=== PATIENT | female | born 1985 | race Caucasian/White ===

== ENCOUNTER → 2016-11-02 | Outpatient (CLI) | payer OTHER ==
[~2016-11-02] MED LIST: AMOXICILLIN250 MG PO; ATRAC-TAIN142 GM EXT; B-121000 MC1 PO; B12 HEALTH1000 MCG/1 PO; BACTRIM DS TAB1 EACH PO; BACTROBAN22 GM TP; CABERGOLINE0.5 MG PO; CENTANY30 G1 TOP; COMBIVENT14.7 GM INH; COREG3.125 MG PO; CYANOCOBAL1000 MCG/M INJ; DDAVP0.1 MG PO; DEMEROL PO; DEPO-PROVE150 MG/11 SUBQ; DESMOPRESSIN A0.1 MG PO; DESMOPRESSIN A0.2 M1 PO; FENOFIBRATE160 MG PO; FERROUS GLUCON324 M1 PO; FLORINEF0.1 MG PO; FLOXIN OTIC5 M1 AU; GLIPIZIDE10 MG PO; GLIPIZIDE10 MG/BOTT PO; GLUCOTROL PO; GUAIFENESIN400 M1 PO; HUMALOG KW200 UNIT/1 SUBQ; K-DUR20 ME1 PO; KOMBIGLYZE XR1 EAC2 PO; LEVAQUIN PO; LEVOTHYROXINE50 MC1 PO; LIPITOR80 MG PO; LISINOPRIL5 MG PO; LOPID600 MG PO; NITROFURANTOIN50 M1 PO; SYMBICORT INH; SYNTHROID112 MCG PO; TIROSINT50 MCG PO; TRESIBA FL100 UNIT/1 SUBQ; TRIAMCINOLONE A15 G2 EXT; TRIAMCINOLONE AC1 GM EXT; TRIGLIDE160 M1 PO; TYLENOL325 M1 PO; UREA142 G1 TP; VITAMIN D32000 UNI1 PO; XARELTO; ZINC SULFATE PO; ZINC50 M1 PO; ZYVOX600 MG DOB
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
== END | disposition home or self-care (01) ==
LOC: CMRI 15:23
DX: R51 Headache (principal); E34.8 Other specified endocrine disorders; G93.89 Other specified disorders of brain
CPT/HCPCS: 70551

== ENCOUNTER → 2016-11-30 | Outpatient (CLI) | payer OTHER ==
--- NOTE | ~2016-11-30 | CT4 ---
[facility] A Service of [facility] RADIOLOGY TEXT RESULTS PATIENT: BREANNE TAPIA LOCATION: [facility] : 85 UNIT #: [id number] AGE: [address]: J Luis Del Rio MD SEX: F ORDER DR: [id number] [place] [id number] [facility] [place], [place] [address] [id number] O MR#: [id number] #: [id number] NAME: BREANNE TAPIA : 1985 SEX: F STUDY DATE/TIME: 11/30/2016 15:09 UNIT: [facility] ROOM: STUDY DESCRIPTION: CT Abd and Pelv Wo Cont Attending Physician: J Luis Del Rio M.D. Referring Physician: J Luis Del Rio M.D. Ordering Physician: J Luis Del Rio M.D. Primary Care Physician: Mana Flores M.D. MEDICAL IMAGING REPORT This report is preliminary unless electronic signature is present EXAM CT of the abdomen and pelvis without contrast INDICATION Left sided abdominal pain for 3 years. Kidney stone history. TECHNIQUE CT of the abdomen and pelvis was performed without contrast. Renal stone protocol. Coronal and sagittal reformatted images were obtained. This CT exam was performed with one or more of the following radiation dose reduction techniques: automatic exposure control, adjustment of mA and/or kV according to patient size, and iterative reconstruction. COMPARISON STUDIES 08/07/2013 FINDINGS There is stable pleural calcifications on the right. There are also stable pleural calcifications along the left hemidiaphragm. The liver is unremarkable. The gallbladder is contracted. The spleen is unremarkable. The left kidney is atrophic and there is a large stone within the left renal pelvis measuring about 1.8 cm. There is a cyst in the right kidney. The adrenal glands are unremarkable. The pancreas is unremarkable. PELVIS: The colon is unremarkable. The appendix is normal. There is no free fluid. The bone windows are unremarkable. IMPRESSION 1. Atrophy of the left kidney with a 1.8 cm stone within the left renal pelvis. 2. Additional findings as described. [facility] A Service of [facility] RADIOLOGY TEXT RESULTS PATIENT: BREANNE TAPIA LOCATION: [facility] : 85 UNIT #: [id number] AGE: [address]: J Luis De lRio MD SEX: F ORDER DR: Dictated by... Kobe Mabry M.D. THIS IS AN ELECTRONICALLY VERIFIED REPORT Kobe Mabry M.D. at 12/01/2016 7:22 PM Honey TD: 12/01/2016 18:10 JOB #: [id number] MEDICAL IMAGING REPORT Page 1 of 1 COPY
== END | disposition home or self-care (01) ==
LOC: CCAT 14:17
DX: N18.3 Chronic kidney disease, stage 3 (moderate) (principal); N20.0 Calculus of kidney; N26.1 Atrophy of kidney (terminal)
CPT/HCPCS: 74176

== ENCOUNTER → 2016-12-30 | Outpatient (CLI) | payer OTHER ==
--- NOTE | ~2016-12-30 | EKG ---
PATIENT: BREANNE TAPIA UNIT #: [id number] Ventricular Rate: 89 BPM Atrial Rate: 89 BPM P-R Interval: 124 ms QRS Duration: 78 ms Q-T Interval: 364 ms QTC Calculation(Bezet): 442 ms P [place]: 50 degrees Calculated R [place]: 36 degrees Calculated T [place]: 38 degrees Diagnosis Line: Sinus rhythm with marked sinus arrhythmia Diagnosis Line: Otherwise normal ECG Diagnosis Line: When compared with ECG of 13-MAR-2015 14:57, Diagnosis Line: No significant change was found Diagnosis Line: Confirmed by OLE WORRELL MD ([id number]) on Diagnosis Line: 12/30/2016 2:48:19 PM INTERPRETING MD: GM ARMENDARIZ
[2016-12-30 14:32] LABS: HEMATOCRIT 45.2 % (35.0-45.0); HEMOGLOBIN 14.3 gm/dL (12.0-16.0); MEAN CELL VOLUME 76.5 FL (83-96); MEAN CORPUSCULAR HEMOGLOBIN 24.2 PG (28-34); MEAN CORPUSCULAR HGB CONC 31.6 g/dL (30-36); MEAN PLATELET VOLUME 7.7 FL (6.5-11.5); RED BLOOD COUNT 5.9 X10e (3.90-5.30); RED CELL DISTRIBUTION WIDTH 16.6 % (11.0-15.5); WHITE BLOOD COUNT 9.2 X10e3 (4.0-10.5)
[2016-12-30 15:00] LABS: CALCIUM SERUM 9.1 mg/dL (8.4-10.2); POTASSIUM 3.9 mmol/L (3.5-5.1)
== END | disposition home or self-care (01) ==
LOC: CAMB 12:35
PROVIDERS: Urology
DX: Z01.818 Encounter for other preprocedural examination (principal); N11.9 Chronic tubulo-interstitial nephritis, unspecified; N26.1 Atrophy of kidney (terminal); I49.9 Cardiac arrhythmia, unspecified
CPT/HCPCS: 36415; 80048; 85027; 86850; 86900; 86901; 93005

== ENCOUNTER 2017-01-06 06:26 | Inpatient (IN) | payer OTHER ==
[~2017-01-06] VITALS: Ht 139.7 cm; Wt 75.5 kg
--- NOTE | ~2017-01-06 | CO ---
Unit #: [id number] #: [id number] Patient: BREANNE TAPIA [id number] [address] [address] [id number] I MR#: [id number] NAME: BREANNE TAPIA ROOM: 478 Age: 31 Sex: F Admission Date: 01/06/2017 : 1985 Attending Physician: J Luis Del Rio M.D. Primary Care Physician: Mana Flores M.D. CONSULTATION REPORT REASON FOR CONSULTATION Tachycardia. 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 Information mostly has been obtained from the mother, who is at bedside. According to the mother, the patient was admitted for a scheduled left nephrectomy. She had an atrophic left kidney as a result to surgery that she had when she was 11 years old. She had recurrent infections. She is known to have familial hypercholesterolemia, diabetes, and diabetes insipidus which she is followed by Dr. Lucas. During the course of her stay, she developed tachycardia with heart rate was up to 140 beats per minute for which Cardiology was consulted. The patient has been unaware of palpitations. She denies any symptoms of angina. Has no shortness of breath. She has been afebrile throughout her stay. Had leukocytosis, but has been corrected. She had hyponatremia and fluid overloaded. She has been restarted on DDAVP. She has had no prior cardiac history or testing in the past. PAST MEDICAL HISTORY 1. Familial hypercholesterolemia. 2. Hypothyroidism. 3. Diabetes mellitus, type 2. 4. Diabetes insipidus. 5. Pulmonary fibrosis. 6. Obstructive sleep apnea. 7. 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 8. Lifelong nonsmoker. 9. Stress test several years ago, no details available, told normal. PAST SURGICAL HISTORY 1. Recent left nephrectomy. 2. Abdominal surgery for ganglionic neuroma. SOCIAL HISTORY The patient lives with her mother. There is no history of alcohol, tobacco, or illicit drug use. FAMILY HISTORY Negative for coronary artery disease. ALLERGIES Unit #: [id number] #: [id number] Patient: BREANNE TAPIA Citric acid, latex, desmopressin. HOME MEDICATIONS Fenofibrate 160 mg daily, desomorphine 0.2 mg t.i.d., Kombiglyze XR 2.10/999 mg b.i.d., Humalog 1 unit subcu t.i.d. a.c. and meals, vitamin D3 2000 units daily p.r.n., zinc sulfate one cap daily, Depo-Provera subcu, Bactrim DS one tablet q.h.s., Tirosint one tablet q.h.s. REVIEW OF SYSTEMS CONSTITUTIONAL: Negative for fever or chills. Has no weakness or fatigue. Had recent weight gain. HEENT: No headache, hearing or vision changes, or difficulty with swallowing. Denies dizziness. CARDIOVASCULAR: Has no symptoms of angina. Denies palpitations. No paroxysmal nocturnal dyspnea or orthopnea. Denies syncope or near syncope. RESPIRATORY: Negative for dyspnea. Reports occasional nonproductive cough. No hemoptysis. GASTROINTESTINAL: Positive for abdominal discomfort. No nausea or diarrhea. EXTREMITIES: Positive for lower extremity edema. PHYSICAL EXAMINATION VITAL SIGNS: Blood pressure 104/54, heart rate 129, temperature 98.1. BMI of 38. GENERAL: This is a 31-year-old short, obese, white female, who is in no acute distress. NEUROLOGIC: She is awake, alert, and oriented. There are no focal weaknesses. NECK: Trachea is midline. No thyromegaly or lymphadenopathy. No jugular venous distention. HEART: S1 and S2. Heart sounds are normal. No murmurs. No rubs or clicks. Regular rate and rhythm. There is tachycardic. ABDOMEN: Soft with tenderness that is diffuse. Bowel sounds are present. No hepatomegaly. EXTREMITIES: With 1+ leg edema. SKIN: Warm and dry. DIAGNOSTIC STUDIES LABORATORY RESULTS: Glucose 158, BUN 12, creatinine 0.7, sodium 136, potassium 4.4, magnesium 2.0. Hemoglobin A1c 7.1. TSH 1.75. Free T4 of 1.22. White count is 6.6, hemoglobin 10.6, hematocrit 33.0, and platelet count is 337. CARDIOVASCULAR STUDIES: EKG sinus tachycardia, rate of 129 beats per minute, otherwise normal. IMPRESSION 1. Status post left nephrectomy. 2. Hyponatremia, resolved. 3. Sinus tachycardia secondary to fluid retention. 4. Obesity. 5. History of obstructive sleep apnea. 6. Diabetes insipidus. PLAN 1. Cardiology was consulted for sinus tachycardia. The tachycardia is most likely secondary to fluid retention. 2. Hyponatremia has been corrected. Unit #: [id number] #: [id number] Patient: BREANNE TAPIA 3. We will check chest x-ray and D-dimer. Doubt pulmonary embolism. 4. Hold off on beta-macy for now. 5. We will follow the patient with you. Thank you for allowing us to assist with this patient's care. Dictated by... Carlos JohnsonPJoycelynRJoycelynN. for Gay Menjivar/sarah TD: 01/12/2017 08:36 JOB #: [id number] CC: Mana Flores M.D. CONSULTATION REPORT Page 1 of 1 X Julio Dong APRN X CONSULTATION REPORT
--- NOTE | ~2017-01-06 | DS ---
Unit #: [id number] #: [id number] Patient: BREANNE TAPIA [id number] [address] [address] [id number] I MR#: [id number] NAME: BREANNE TAPIA ROOM: 478 Age: 31 Sex: F Admission Date: 01/06/2017 : 1985 Discharge Date: 01/12/2017 Attending Physician: J Luis Del Rio M.D. Primary Care Physician: Mana Flores M.D. DISCHARGE SUMMARY PRIMARY DIAGNOSIS Left renal atrophy with chronic urinary tract infection associated with left renal stone. OTHER DIAGNOSES 1. Diabetes mellitus. 2. Diabetes insipidus. 3. Postoperative tachycardia. 4. Postoperative atelectasis. PROCEDURE Left re-operative open nephrectomy, January 06, 2017. CONSULTATIONS 1. Internal medicine, Dr. Vargas, diabetes and medical management. 2. Cardiology, Dr. Coombs. 3. Endocrinology, Dr. Lucas. 4. Pulmonary, Dr. Haynes. DISPOSITION Home. FOLLOWUP 1. Followup in my office next Monday for removal of remaining marylin. 2. Followup with pulmonary six to eight weeks with PFTs prior to appointment. 3. Endocrinology followup pending. HISTORY This patient with multiple medical problems and who already sees Dr. Lucas for hypothyroidism and the above endocrine problems was referred for persistent urinary tract infections associated with her atrophic left kidney and left renal stone. 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 A laparoscopic attempt at removal of the kidney had been unsuccessful due to intense scarring and that urologist had declined to re-attempt an open nephrectomy which was again requested at this time. HOSPITAL COURSE The patient was admitted the day of surgery and the nephrectomy difficult as expected was uneventfully performed. Postoperatively, patient was stable but declined Lovenox injections and therefore pneumatic boots were ordered. She eventually agreed with the Lovenox injections. The boots had initially been thought a second choice due to her chronic lower Unit #: [id number] #: [id number] Patient: BREANNE TAPIA extremity edema and wounds which are dressed. She was immediately seen by medicine for optimal management of her diabetes and recognizing Dr. Lucas's involvement. He followed subsequently. Due to early postoperative fever, likely due to insufficient ambulation and cooperation with spirometry, cultures were taken from urine and Isidro-Oquendo drainage. The urine was not done, but the BABAK drainage was negative. There was brief tachycardia for which she was seen by cardiology and evaluation normal other than mild elevation of D-dimer. This plus mildly abnormal chest x-ray prompted pulmonary evaluation where upon V/Q scan was ruled out with negative lower extremity Dopplers and negative V/Q scan. Note, the patient's diet was very rapidly advanced and not a problem during the admission. On the morning of discharge, she is very eager to go home. Every other staple is removed and she is discharged with followups as above. DISCHARGE MEDICATIONS Medications at time of discharge include: 1. Triamcinolone 1 g external every evening. 2. Mupirocin ointment. 3. Depo Provera subcutaneous every three months. 4. Kombiglyze XR 2.5-1000 mg one twice daily. 5. Fenofibrate 160 mg each evening. 6. Insulin degludec 30 units subcutaneous at bedtime. 7. Lispro insulin 1 unit subcutaneous a.c. 8. Desmopressin 0.2 mg twice daily. 9. Zinc one capsule every morning. 10. Bactrim double strength one at bedtime to be continued until followup. 11. Levothyroxine one tab every evening 0.5. 12. Vitamin D3 at 2000 units every morning. Dictated by... J Luis Del Rio M.D. [facility]/mikey TD: 01/13/2017 09:57 JOB #: [id number] CC: Gay Gilman M.D. Tamea D. Evans, M.D. DISCHARGE SUMMARY Page 1 of 1 X J Luis Del Rio MD DISCHARGE SUMMARY
--- NOTE | ~2017-01-06 | EKG ---
PATIENT: BREANNE TAPIA UNIT #: [id number] Ventricular Rate: 129 BPM Atrial Rate: 129 BPM P-R Interval: 118 ms QRS Duration: 82 ms Q-T Interval: 300 ms QTC Calculation(Bezet): 439 ms P [place]: 53 degrees Calculated R [place]: 55 degrees Calculated T [place]: 38 degrees Diagnosis Line: Sinus tachycardia Diagnosis Line: Normal ECG Diagnosis Line: When compared with ECG of 07-JAN-2017 13:38, Diagnosis Line: No significant change was found Diagnosis Line: Confirmed by JACKELYN RAIN MD ([id number]) on 01/11/2017 Diagnosis Line: 12:06:36 AM INTERPRETING MD: KOFFI ARMENDARIZ
--- NOTE | ~2017-01-06 | EKG ---
PATIENT: BREANNE TAPIA UNIT #: [id number] Ventricular Rate: 112 BPM Atrial Rate: 112 BPM P-R Interval: 128 ms QRS Duration: 74 ms Q-T Interval: 318 ms QTC Calculation(Bezet): 434 ms P [place]: 48 degrees Calculated R [place]: 19 degrees Calculated T [place]: 39 degrees Diagnosis Line: Sinus tachycardia Diagnosis Line: Otherwise normal ECG Diagnosis Line: When compared with ECG of 30-DEC-2016 12:50, Diagnosis Line: No significant change was found Diagnosis Line: Confirmed by JACKELYN RAIN MD ([id number]) on 01/10/2017 Diagnosis Line: 7:00:27 AM INTERPRETING MD: KOFFI ARMENDARIZ
--- NOTE | ~2017-01-06 | US84 ---
[id number] [facility] [address] [place], [place] [address] [id number] I MR#: [id number] #: [id number] NAME: BREANNE TAPIA : 1985 SEX: F STUDY DATE/TIME: 01/11/2017 16:15 UNIT: [facility] ROOM: 478 STUDY DESCRIPTION: US LE Veins Complete Jose Luis Stdy Attending Physician: J Luis eDl Rio M.D. Ordering Physician: Ed Doc Gay Resendiz Primary Care Physician: Mana Flores M.D. MEDICAL IMAGING REPORT This report is preliminary unless electronic signature is present EXAM Bilateral leg vein Doppler, 01/11 INDICATIONS Bilateral leg edema for 1 week. TECHNIQUE Venous ultrasound examination of both lower extremities was performed using grayscale, spectral Doppler and color flow Doppler imaging. FINDINGS The examination is negative. There is no evidence of deep venous thrombus from the groin to the lower calf bilaterally. Visualized greater saphenous veins are also patent. IMPRESSION Negative examination. No evidence of lower extremity deep venous thrombosis. Dictated by... J Luis Bustillos Jr., M.D. THIS IS AN ELECTRONICALLY VERIFIED REPORT J Luis Bustillos Jr., M.D. at 01/13/2017 2:28 PM TANIA/jeremi TD: 01/12/2017 03:43 JOB #: [id number] MEDICAL IMAGING REPORT Page 1 of 1 COPY
--- NOTE | ~2017-01-06 | OR ---
Unit #: [id number] #: [id number] Patient: BREANNE TAPIA [id number] [address] [address] [id number] I MR#: [id number] NAME: BREANNE TAPIA ROOM: 452 Date of Procedure: 01/06/2017 Admission Date: 01/06/2017 Surgeon: J Luis Del Rio M.D. : 1985 Attending Physician: J Luis Del Rio M.D. Primary Care Physician: Mana Flores M.D. OPERATIVE REPORT PREOPERATIVE DIAGNOSES Atrophic left kidney with chronic infected stone; multiple prior retroperitoneal surgeries including failed laparoscopic nephrectomy attempt in the past. POSTOPERATIVE DIAGNOSES Atrophic left kidney with chronic infected stone; multiple prior retroperitoneal surgeries including failed laparoscopic nephrectomy attempt in the past. PROCEDURE PERFORMED Left open nephrectomy. DIRECTOR VACCINE Magaly Price, licensed medical surgical coder. ANESTHESIA General with local supplementation. 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 Her left kidney is atrophic and harbors a large lower pole stone. Laparoscopic attempt to remove this by another surgeon in 2013 was unsuccessful. She is referred back by Nephrology for her continued infections, historically chronic strep, although most recent culture to me mixed vishnu. She has remained, after initial amoxicillin, on Bactrim according to culture results. DESCRIPTION OF PROCEDURE The patient was given preoperative Rocephin and satisfactory general anesthesia. In the supine position, pneumatic boots were not placed as both of her legs were wrapped for chronic wounds. The Ordaz catheter was placed. She was positioned in full left flank with the kidney rest elevated and secured to the table with tape at the hips and chest with all extremities had properly padded and the left arm suspended with padding. I palpated the 12th rib and marked an ink and incision confluent with her anterior incision. Routine prep and drape were performed. Then, incision was made over the 12th rib as indicated above. Immediately noted in the retroperitoneum was dense scarring. Continued reference to the CT scan facilitated avoiding the colon and the small bowel which were in immediate proximity with the densely scarred left kidney. One full hour was Unit #: [id number] #: [id number] Patient: BREANNE TAPIA required to identify the kidney and freed up initially. Fortunately although the hilum was densely scarred and with dense adhesions of the anterior kidney and lower pole. The posterior kidney at the level of capsule was able to be bluntly dissected as well as the upper pole, which came down bluntly without bleeding and was known to be well from the adrenal gland. A second hour was required to meticulously dissect out in a circumferential fashion of the hilum. In this process, the ureter was identified and divided between silk ties. The gonadal vein was never positively identified. The renal vein or a branch was identified and test clamped without any enlargement of the kidney. Further dissection of the dense hilum and mobilization of the kidney reached a point where it was most practical to place a Satinsky clamp. I did first tie off the small vein that had been identified with silk. I then applied this Satinsky and the kidney with an 11-blade. Note that, in the dissection, the lower pole of the kidney which was severely atrophic was entered and 2 or 3 tiny stones were spilled and submitted with the specimen. There was no pus whatsoever from the kidney. The bulk of stone remained in the kidney which was delivered off and placed in formalin before I could suggest to be sent for culture. The hilar clamp was twice under sewn with a running 3-0 Prolene. When this was tied, there was complete hemostasis. Inspection did not clearly reveal the renal artery to me. There were no areas of bleeding subsequent to this. A meticulous search to assure hemostasis was performed and the wound was irrigated with solution extensively. It was closed with a 15 round Isidro-Oquendo drain, secured with silk. The wound was then closed in 3 layers of running #1 Vicryl. A dense Jacquie layer was approximated after again irrigating the wound, and the skin was closed with metallic clips. 30 mL of 0.5% Marcaine were injected in the wound and a sterile dressing applied. The patient was awakened and transported to recovery room in satisfactory condition. Dictated by... Gay Hay/sarah TD: 01/06/2017 13:01 JOB #: [id number] CC: Consuelo Mahajan M.D. OPERATIVE REPORT Page 1 of 1 X J Luis Del Rio MD PROCEDURE OPERATIVE NOTE
--- NOTE | ~2017-01-06 | NM69 ---
[facility] A Service of [facility] & [facility] RADIOLOGY TEXT RESULTS PATIENT: BREANNE TAPIA LOCATION: [place] [address] : 85 UNIT #: [id number] AGE: [address]: J Luis Del Rio MD SEX: F ORDER DR: [id number] [facility] [address] [place], [place] [address] [id number] I MR#: [id number] Acc #: [id number] NAME: BREANNE TAPIA : 1985 SEX: F STUDY DATE/TIME: 01/11/2017 18:22 UNIT: [facility] ROOM: [facility] STUDY DESCRIPTION: NM Pulm Vent and Perf Attending Physician: J Luis Del Rio M.D. Ordering Physician: J Luis Del Rio M.D. Primary Care Physician: Mana Flores M.D. MEDICAL IMAGING REPORT This report is preliminary unless electronic signature is present EXAM Ventilation-perfusion lung scan, 01/11/2017. HISTORY Elevated D-dimer with swollen legs and feet for 1 week. Evaluate for pulmonary embolus. FINDINGS The patient received 35.3 mCi of technetium 99m tagged DTPA aerosol for ventilation imaging followed by an intravenous injection of 5.94 mCi of technetium 99m tagged MAA for perfusion imaging. No unmatched subsegmental or segmental perfusion defects are seen. IMPRESSION Normal ventilation-perfusion lung scan. Dictated by... Paul Schaefer M.D. THIS IS AN ELECTRONICALLY VERIFIED REPORT Paul Schaefer M.D. at 01/12/2017 10:22 AM MIKE/nguyễn TD: 01/12/2017 08:44 JOB #: [id number] MEDICAL IMAGING REPORT Page 1 of 1 COPY
--- NOTE | ~2017-01-06 | CR63 ---
[facility] Service of [facility] RADIOLOGY TEXT RESULTS PATIENT: BREANNE TAPIA LOCATION: [place] [address] : 85 UNIT #: [id number] AGE: [address]: J Luis Del Rio MD SEX: F ORDER DR: [id number] [facility] [address] [place], [place] [address] [id number] I MR#: [id number] Acc #: [id number] NAME: BREANNE TAPIA : 1985 SEX: F STUDY DATE/TIME: 01/10/2017 12:32 UNIT: [facility] ROOM: [facility] STUDY DESCRIPTION: CR Chest 2 View Attending Physician: J Luis Del Rio M.D. Ordering Physician: Fredis Resendiz M.D. Primary Care Physician: Mana Flores M.D. MEDICAL IMAGING REPORT This report is preliminary unless electronic signature is present EXAM Chest, 2 views, 01/10/2017, 1232 hours. CLINICAL HISTORY Tachycardia with cough, congestion, and shortness of air for 4 days. COMPARISON 06/20/2010 FINDINGS Upright PA and lateral views of the chest demonstrate a right PICC line with tip at junction of SVC and right atrium. The cardiac, mediastinal, and hilar contours are normal. There is parenchymal density in the medial right lung base somewhat obscuring the right heart border with minimal patchy density at the left base. There are small bilateral pleural effusions. IMPRESSION 1. Right PICC line tip in the SVC at the junction with right atrium. 2. There is patchy airspace change in the medial lung bases, right greater than left, with bilateral pleural effusions left greater than right. Dictated by... Nita Turpin M.D. THIS IS AN ELECTRONICALLY VERIFIED REPORT Nita Turpin M.D. at 01/10/2017 6:57 PM Marlin TD: 01/10/2017 17:32 [facility] Service of [facility] RADIOLOGY TEXT RESULTS PATIENT: BREANNE TAPIA LOCATION: [facility] [id number] : 85 UNIT #: [id number] AGE: [address]: J Luis Del Rio MD SEX: F ORDER DR: JOB #: [id number] MEDICAL IMAGING REPORT Page 1 of 1 COPY
--- NOTE | ~2017-01-06 | CO ---
Unit #: [id number] #: [id number] Patient: BREANNE OLIVARES [id number] [address] [place], [place] [address] [id number] I MR#: [id number] NAME: BREANNE OLIVARES ROOM: 478 Age: 31 Sex: F Admission Date: 01/06/2017 : 1985 Attending Physician: J Luis Del Rio M.D. Primary Care Physician: Mana Flores M.D. Consultation Date: 01/11/2017 CONSULTATION REPORT REASON FOR CONSULTATION Abnormal chest x-ray. HISTORY OF PRESENT ILLNESS The patient is a 31-year-old female, who actually I had seen in the past for sleep apnea. She was tried on CPAP, but could not tolerate it. She currently is untreated. She had issues with chronic infected kidney stone and underwent left nephrectomy. She has a very complicated past history including diabetes insipidus. She had lower extremity edema. Chest x-ray was performed, radiologist called bibasilar infiltrates and we were asked to see the patient. The patient denies any shortness of breath. She walks up and down the halls without difficulty. No wheezing, sputum production, fever, chest pain, hemoptysis, or pleurisy. PAST MEDICAL HISTORY 1. Remarkable for remote obstructive sleep apnea, intolerant to CPAP; remote critical illness in 1995, which sounds like pneumonia, complicated by ARDS and pneumothorax. describes pleurodesis on the right side, possibly on the left side. She states she was left with "fibrosis.". 2. Diabetes insipidus. 3. Diabetes mellitus. 4. Multiple medical problems including hyperlipidemia, hypothyroidism, pituitary tumor, history of remote encephalitis, history ganglionic neuroma, history of chronic leg wounds followed by dermatology. MEDICATIONS At home according to her med rec sheet includes Synthroid, Bactrim DS, fenofibrate, desmopressin, Kombiglyze, Tresiba, a variety of vitamins and topical creams. ALLERGIES DDAVP nasally, but apparently can take it orally. SOCIAL HISTORY Lives with her parents. She does not smoke or drink. FAMILY HISTORY Diabetes. REVIEW OF SYSTEMS She denies daytime sleepiness. She does have an unusual sleep schedule and basically stays up very late. No fever or chills. She denies any lower extremity edema at baseline, but I find that somewhat hard to Unit #: [id number] #: [id number] Patient: BREANNE OLIVARES believe by exam. She denies chest pain, palpitations, abdominal pain, melena, or hematochezia. She is postop and recovering, walking without difficulty. She apparently walks with assistance at home at baseline. Further review of systems negative or as above. PHYSICAL EXAMINATION GENERAL: Reveals a patient, who is comfortable, sitting in a chair on room air, in no acute distress. VITAL SIGNS: She has a T-max of 100. She is now 99.3, pulse is 118, respiratory rate is 18, blood pressure is 116/46, 4 feet 7 inches, 166 pounds, BMI is 38. HEENT: Pupils are equal, round, and reactive to light. Sclerae anicteric. Head atraumatic. NECK: Supple. She is nontoxic. Mucous membranes moist. Mallampati class IV oropharynx. CHEST: No wheeze, stridor, crackles, or consolidation. CARDIAC: Reveals a tachycardia which is regular. No murmur, rub or gallop. ABDOMEN: Obese, soft, and nontender. No hepatomegaly or rebound. EXTREMITIES: Reveal 2+ edema. Some chronic leg wounds. No acute cellulitis. NEUROLOGIC: Grossly intact. No focal, motor or sensory deficits. DIAGNOSTIC STUDIES LABORATORY RESULTS: BUN is 17, creatinine 0.9, sodium is 157 and Endocrine is following. D-dimer was checked and was 564. White blood cell count is 6, hemoglobin is 10, platelet count is 384. Urinalysis; trace leukocyte esterase. Blood cultures were performed and no growth so far. IMAGING STUDIES: Chest x-ray, I did not see any significant alveolar or interstitial infiltrates. The radiologist is reading patchy airspace change at medial lung bases, right greater than left. Bilateral pleural effusions. On lateral film, I do agree that there may be some small pleural effusions. CT scan of the abdomen, lower lung cuts in 11/2016 revealed some pleural plaques. No definite fibrosis was commented upon. Echocardiogram per verbal report from Dr. Coombs, normal RV, normal LV, rhythm strips, sinus tachycardia. IMPRESSION 1. Abnormal chest x-ray, looks okay to me. I think this may be some mild atelectasis. She may have had some mild volume overload postoperatively causing transudative pleural effusions and lower extremity edema. I see no evidence of britany pulmonary edema currently. 2. History of severe pneumonia what sounds like pneumothorax, barrel trauma resulting in pneumothorax, status post chest tube and ultimately pleurodesis. 3. Obstructive sleep apnea, intolerant to CPAP, details unclear. 4. Postoperative nephrectomy. 5. Diabetes insipidus with increased sodium. 6. Elevated D-dimer secondary to recent surgery. 7. Lower extremity edema. 8. Medical problems listed above. PLAN I will check lower extremity venous Dopplers to rule out DVT, but my suspicion for pulmonary embolism is very low. She may benefit from Unit #: [id number] #: [id number] Patient: BREANNE OLIVARES outpatient PFTs to document this diagnosis of pulmonary fibrosis, which I doubt. We will try to evaluate our office notes to see if she needs any further evaluation for sleep apnea. Thank you very much for allowing me to participate in the care of Ms. Olivares. Dictated by... Dayo Haynes M.D. VIGNESH/sarah TD: 01/12/2017 07:50 JOB #: [id number] CC: Gay Menjivar M.D. CONSULTATION REPORT Page 1 of 1 X Dayo Haynes MD CONSULTATION REPORT
--- NOTE | ~2017-01-06 | CO ---
Unit #: [id number] #: [id number] Patient: BREANNE TAPIA [id number] [address] [place], [place] [address] [id number] I MR#: [id number] NAME: BREANNE TAPIA ROOM: 478 Age: 31 Sex: F Admission Date: 01/06/2017 : 1985 Attending Physician: J Luis Del Rio M.D. Primary Care Physician: Mana Flores M.D. Consultation Date: 01/10/2017 CONSULTATION REPORT REASON FOR CONSULT Management of the sodium and diabetes insipidus. This is a 31-year-old female who was very well known to me from my office with a history of type 2 diabetes mellitus, central diabetes insipidus, hypothyroidism, obesity, history of infected renal stones with left nephrectomy, who was admitted with increasing swelling generalized all over her body but she has no difficulty in breathing. On admission, she had a sodium of 156. She was started on DDAVP where her sodium dropped to 128 which was discontinued. Desmopressin was discontinued. Today her sodium is 146. I have been asked to see the patient for further evaluation and management. MEDICAL HISTORY See HPI. Other medical problems include obstructive sleep apnea. PAST SURGICAL HISTORY 1. Left nephrectomy. 2. History of EGD. SOCIAL HISTORY Lives with her parents. She has no history of tobacco or alcohol use. FAMILY HISTORY Noncontributory. ALLERGIES Sodium phosphate, citric acid, latex. HOME MEDICATIONS List was reviewed. She is on: 1. Tresiba 30 units at bedtime. 2. Kombiglyze 2.10/999 twice daily. 3. Humalog sliding scale. 4. Fenofibrate 160 mg daily. 5. Levothyroxine. 6. Desmopressin - she was receiving 0.2 mg, three tablets daily. 7. Depo-Provera every three months. REVIEW OF SYSTEMS Twelve point review of systems is completed and unremarkable. At this time, she declines any polyuria or polydipsia. No headaches, no visual problems. The rest of review of system is unremarkable. Unit #: [id number] #: [id number] Patient: BREANNE TAPIA PHYSICAL EXAMINATION GENERAL APPEARANCE: She looks comfortable, in no acute distress. VITAL SIGNS: Temperature 98.4, pulse 111, respirations 16, blood pressure is 104/55. HEENT: EOMI. Pupils equal, react to light. NECK: Supple. No thyromegaly noted. CHEST: Good air entry. CVS: Regular rhythm. No murmurs. ABDOMEN: Soft, nontender. Bowel sounds positive. EXTREMITIES: No edema noted. DIAGNOSTIC STUDIES LABORATORY: Labs reviewed. Creatinine is 0.7, sodium 146, potassium 4.4, chloride 109, CO2 is 28. A1c 7.1. ASSESSMENT 1. Hyponatremia due to the desmopressin as well as IV hydration: Sodium has improved. Now, at this point, she is hypernatremic at 146. 2. History of diabetes insipidus. 3. Diabetes mellitus type 2. 4. Hypothyroidism. PLAN Will start patient on desmopressin 0.1 mg twice daily. Will monitor sodium daily. Will hold the dose if the sodium level goes below 138. Blood sugars have been stable. Continue current medications and insulin. Will continue to follow the patient for further management. Dictated by... Gay Nava/rylan TD: 01/11/2017 11:21 JOB #: [id number] CONSULTATION REPORT Page 1 of 1 X Spring Lucas MD X CONSULTATION REPORT
--- NOTE | ~2017-01-06 | CR63 ---
[facility] A Service of [facility] & [facility] RADIOLOGY TEXT RESULTS PATIENT: BREANNE TAPIA LOCATION: [place] [address]- : [birth year] UNIT #: [id number] AGE: [address]: J Luis Del Rio MD SEX: F ORDER DR: [id number] [facility] [address] [place], [place] [address] [id number] I MR#: [id number] #: [id number] NAME: BREANNE TAPIA : 1985 SEX: F STUDY DATE/TIME: 01/11/2017 7:17 UNIT: [facility] ROOM: [facility] STUDY DESCRIPTION: CR Chest 2 View Attending Physician: J Luis Del Rio M.D. Ordering Physician: Darrell Best M.D. Primary Care Physician: Mana Flores M.D. MEDICAL IMAGING REPORT This report is preliminary unless electronic signature is present EXAM Chest x-ray, 01/11 INDICATION Shortness of air, cough, congestion since 01/06/2017. History of hypertension. FINDINGS Two views of the chest are compared with 01/10/2017. Right arm PICC remains in the SVC. Small bilateral pleural effusions are stable. Mild infiltrate or atelectasis in both bases, also stable. No pneumothorax. IMPRESSION Stable appearance of the chest with small bilateral effusions and mild bibasilar atelectasis or infiltrate. Dictated by... J Luis Bustillos Jr., M.D. THIS IS AN ELECTRONICALLY VERIFIED REPORT J Luis Bustillos Jr., M.D. at 01/11/2017 4:45 PM TANIA/ann marie TD: 01/11/2017 13:11 JOB #: [id number] MEDICAL IMAGING REPORT Page 1 of 1 COPY
--- NOTE | ~2017-01-06 | CO ---
Unit #: [id number] #: [id number] Patient: BREANNE TAPIA [id number] [address] [address] [id number] I MR#: [id number] NAME: BREANNE TAPIA ROOM: 45 Age: 31 Sex: F Admission Date: 01/06/2017 : 1985 Attending Physician: J Luis Del Rio M.D. Primary Care Physician: Mana Flores M.D. Consultation Date: 01/06/2017 CONSULTATION REPORT REASON FOR CONSULTATION Diabetes and medical management. HISTORY OF PRESENT ILLNESS The patient is a 31-year-old female with past medical history of infected renal stone, hyperlipidemia, hypothyroidism, diabetes insipidus, diabetes mellitus, pulmonary fibrosis, obstructive sleep apnea, ganglionic neuroma, encephalitis, pituitary gland tumor, immunodeficiency and leg wounds who was admitted by Dr. Del Rio for left nephrectomy. History is obtained from chart review and discussion with the patient and her parents who are at bedside. The patient has apparently had an atrophic left kidney with infected renal stone and multiple prior surgeries. She underwent nephrectomy today. She denies any current chest pain or difficulty breathing. Her pain control is adequate. She states that she has been taking her medications as prescribed. She sees Dr. Lucas regarding diabetes insipidus, hypothyroidism. She is also seeing Dr. Mohamud regarding chronic leg wounds. l PAST MEDICAL HISTORY 1. Hospitalized at [facility] for kidney-related issue (no records). 2. Hyperlipidemia. 3. Hypothyroidism, followed by Dr. Lucas. 4. Diabetes insipidus, maintained on desmopressin. 5. Diabetes. 6. 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 7. Obstructive sleep apnea, not on CPAP. 8. History of ganglionic neuroma status post surgery. 9. History of encephalitis. 10. History of pituitary gland tumor, per record review. However, the patient's mother denies a tumor. 11. History of immunodeficiency. Previously followed by immunology but not currently. 12. Leg wounds, followed by Dr. Mohamud. PAST SURGICAL HISTORY 1. EGD. 2. Abdominal surgery for "ganglionic neuroma." SOCIAL HISTORY Unit #: [id number] #: [id number] Patient: BREANNE TAPIA The patient lives with her parents. There is no tobacco or alcohol use. She typically walks without assistance. FAMILY HISTORY Notable for diabetes. ALLERGIES Sodium phosphate dibasic, desmopressin, citric acid, latex. HOME MEDICATIONS 1. Levothyroxine daily. 2. Bactrim daily. 3. Fenofibrate 160 mg daily. 4. Desmopressin 0.2 mg t.i.d. 5. Saxagliptin/metformin 2.5/1,000 b.i.d. 6. Tresiba 30 units at bedtime. 7. Mupirocin topically at bedtime. 8. Triamcinolone cream daily. 9. Humalog sliding scale. 10. Vitamin D3 - 2,000 units daily. 11. Zinc daily. 12. Depo-Provera q.3 months. REVIEW OF SYSTEMS A complete review of systems is negative except as indicated in the HPI. PHYSICAL EXAMINATION VITAL SIGNS: Temperature is 98.7, pulse 83, blood pressure 119/63, respirations 16, oxygen saturation 94% on room air. GENERAL: The patient is a female who is awake and alert, in no acute distress. HEENT: The head is atraumatic. Mucous membranes are moist. She does seem to have "mcgraw facies." NECK: Supple. Trachea is midline. CARDIOVASCULAR: Regular rate and rhythm. RESPIRATORY: Lungs are clear to auscultation bilaterally with no increased work of breathing. ABDOMEN: Demonstrates decreased bowel sounds. There is a dressing in the left abdomen that is clean, dry and intact. She does have a drain in place. EXTREMITIES: The patient has ANISHA Bandages about the legs. There is no pedal edema. NEUROLOGIC: The patient is awake and alert, oriented x3. She follows commands. PSYCHIATRIC: Mood and affect are normal. The patient is cooperative. SKIN: Skin of examined areas is warm and dry. DIAGNOSTIC TESTS LABORATORY: Basic metabolic panel from today notable for glucose of 121. ASSESSMENT 1. The patient is a 31-year-old female with status post left nephrectomy. 2. History of infected renal stone. 3. Hyperlipidemia. 4. Hypothyroidism. 5. Diabetes insipidus, maintained on desmopressin. 6. Diabetes. 7. Pulmonary fibrosis. Unit #: [id number] #: [id number] Patient: BRENANE TAPIA 8. Obstructive sleep apnea, not on CPAP. 9. History of ganglionic neuroma status post surgery. 10. History of encephalitis. 11. Possible history of pituitary gland tumor. 12. History of immunodeficiency. 13. Leg wounds, followed by Dr. Mohamud. PLAN 1. Regarding diabetes, I have ordered a hemoglobin A1C, as well as low dose sliding scale insulin with Accu-Cheks. 2. Regarding hypothyroidism, I have ordered a TSH. 3. Regarding leg wounds, I have ordered a wound care consult. Thank you very much for the consultation. We will follow the patient along closely with you. Dictated by... Raya Vargas M.D. Pj TD: 01/06/2017 13:47 JOB #: [id number] CONSULTATION REPORT Page 1 of 1 X Raya Vargas MD X CONSULTATION REPORT
[~2017-01-06 06:26] MED LIST changes: -B-121000 MC1 PO; -CYANOCOBAL1000 MCG/M INJ; -DEMEROL PO; -FERROUS GLUCON324 M1 PO; -LISINOPRIL5 MG PO; -XARELTO
[2017-01-06 07:37] LABS: CALCIUM SERUM 8.8 mg/dL (8.4-10.2); CREATININE SERUM 0.5 mg/dL (0.6-1.4); POTASSIUM 3.7 mmol/L (3.5-5.1)
[2017-01-07 12:28] LABS: CALCIUM SERUM 7.9 mg/dL (8.4-10.2); CREATININE SERUM 0.6 mg/dL (0.6-1.4); GLOM FILT RATE Estimated 121.5 mL/min (>60); POTASSIUM 4.2 mmol/L (3.5-5.1)
[2017-01-07 13:50] LABS: URINE APPEARANCE CLEAR; URINE BILIRUBIN NEG (NEG); URINE BLOOD 1+ (NEG); URINE COLOR YELLOW; URINE GLUCOSE NEG (NEG); URINE KETONE 1+ (NEG); URINE LEUKOCYTE ESTERASE NEG (NEG); URINE NITRATE NEG (NEG); URINE PH 5.5 (5-8); URINE PROTEIN NEG (NEG); URINE SPECIFIC GRAVITY 1.022 (1.003-1.035); URINE UROBILINOGEN 0.2 MG/DL (NEG)
[2017-01-07 13:53] LABS: CULTURE INDICATED? NO; URINE BACTERIA AUWI NEG (NEGATIVE); URINE SQUAMOUS EPITHELIAL CELL NONE SEEN /[HPF]
[2017-01-07 16:00] LABS: BASOPHIL% 0.3 % (0-2.5); EOSINOPHIL# 0.1 X10e3 (0-0.7); EOSINOPHIL% 0.5 % (0.0-7.0); HEMATOCRIT 32.8 % (35.0-45.0); HEMOGLOBIN 10.5 gm/dL (12.0-16.0); LYMPHOCYTE# 1.6 X10e3 (1.0-3.5); LYMPHOCYTE% 12.3 % (17.0-45.0); MEAN CELL VOLUME 74.5 FL (83-96); MEAN CORPUSCULAR HEMOGLOBIN 23.9 PG (28-34); MEAN CORPUSCULAR HGB CONC 32.1 g/dL (30-36); MEAN PLATELET VOLUME 7.7 FL (6.5-11.5); MONOCYTE% 7.5 % (3.0-12.0); NEUTROPHIL# 10.5 X10e3 (1.5-7.1); NEUTROPHIL% 79.4 % (40-75); PLATELET COUNT 251 X10e3 (140-420); RED CELL DISTRIBUTION WIDTH 16.6 % (11.0-15.5); WHITE BLOOD COUNT 13.2 X10e3 (4.0-10.5)
[2017-01-07 16:01] LABS: DIFF IND NO
[2017-01-07 16:31] LABS: CALCIUM SERUM 7.9 mg/dL (8.4-10.2); CREATININE SERUM 0.5 mg/dL (0.6-1.4); POTASSIUM 3.9 mmol/L (3.5-5.1)
[2017-01-08 02:40] LABS: BASOPHIL# 0.1 X10e3 (0-0.3); BASOPHIL% 0.7 % (0-2.5); EOSINOPHIL# 0.2 X10e3 (0-0.7); EOSINOPHIL% 1.3 % (0.0-7.0); HEMATOCRIT 31.5 % (35.0-45.0); HEMOGLOBIN 10.1 gm/dL (12.0-16.0); LYMPHOCYTE# 1.5 X10e3 (1.0-3.5); LYMPHOCYTE% 10.7 % (17.0-45.0); MEAN CELL VOLUME 73.9 FL (83-96); MEAN CORPUSCULAR HEMOGLOBIN 23.7 PG (28-34); MEAN PLATELET VOLUME 7.3 FL (6.5-11.5); MONOCYTE# 1.1 X10e3 (0-1.0); NEUTROPHIL# 11.3 X10e3 (1.5-7.1); NEUTROPHIL% 79.3 % (40-75); PLATELET COUNT 241 X10e3 (140-420); RED BLOOD COUNT 4.26 X10e (3.90-5.30); RED CELL DISTRIBUTION WIDTH 16.6 % (11.0-15.5); WHITE BLOOD COUNT 14.2 X10e3 (4.0-10.5)
[2017-01-08 03:00] LABS: DIFF IND NO
[2017-01-08 03:04] LABS: CALCIUM SERUM 7.4 mg/dL (8.4-10.2); CREATININE SERUM 0.7 mg/dL (0.6-1.4); GLOM FILT RATE Estimated 115.5 mL/min (>60); POTASSIUM 3.4 mmol/L (3.5-5.1)
[2017-01-08 03:15] LABS: THYROID STIMULATING HORMONE 1.75 uIU/ml (0.34-5.60)
[2017-01-08 03:21] LABS: FREE THYROXIN (T4) 1.22 ng/dL (0.58-1.64)
[2017-01-09 03:27] LABS: BASOPHIL# 0.1 X10e3 (0-0.3); BASOPHIL% 0.8 % (0-2.5); EOSINOPHIL# 0.4 X10e3 (0-0.7); EOSINOPHIL% 3.4 % (0.0-7.0); HEMATOCRIT 29.1 % (35.0-45.0); HEMOGLOBIN 9.4 gm/dL (12.0-16.0); LYMPHOCYTE# 1.5 X10e3 (1.0-3.5); LYMPHOCYTE% 12.9 % (17.0-45.0); MEAN CELL VOLUME 73.4 FL (83-96); MEAN CORPUSCULAR HEMOGLOBIN 23.6 PG (28-34); MEAN CORPUSCULAR HGB CONC 32.2 g/dL (30-36); MEAN PLATELET VOLUME 7.6 FL (6.5-11.5); MONOCYTE# 0.8 X10e3 (0-1.0); NEUTROPHIL# 8.7 X10e3 (1.5-7.1); NEUTROPHIL% 75.9 % (40-75); PLATELET COUNT 275 X10e3 (140-420); RED BLOOD COUNT 3.97 X10e (3.90-5.30); WHITE BLOOD COUNT 11.5 X10e3 (4.0-10.5)
[2017-01-09 03:28] LABS: DIFF IND NO
[2017-01-09 03:57] LABS: BUN/CREATININE RATIO 11.66; CALCIUM SERUM 7.8 mg/dL (8.4-10.2); CREATININE SERUM 0.6 mg/dL (0.6-1.4); GLOM FILT RATE Estimated 121.5 mL/min (>60); POTASSIUM 3.3 mmol/L (3.5-5.1)
[2017-01-09 09:34] LABS: URINE APPEARANCE CLEAR; URINE BILIRUBIN NEG (NEG); URINE BLOOD NEG (NEG); URINE COLOR YELLOW; URINE GLUCOSE NEG (NEG); URINE KETONE NEG (NEG); URINE LEUKOCYTE ESTERASE TRACE (NEG); URINE NITRATE NEG (NEG); URINE PROTEIN NEG (NEG); URINE SPECIFIC GRAVITY 1.005 (1.003-1.035); URINE UROBILINOGEN 0.2 MG/DL (NEG)
[2017-01-09 09:38] LABS: URBCS1 AUWI 0-2 /[HPF] (0-2); URINE BACTERIA AUWI NEG (NEGATIVE); URINE SQUAMOUS EPITHELIAL CELL NONE SEEN /[HPF]; UWBCS1 AUWI 0-2 (0-5)
[2017-01-09 09:52] LABS: CULTURE INDICATED? NO
[2017-01-10 03:31] LABS: HEMOGLOBIN 10.6 gm/dL (12.0-16.0); MEAN CELL VOLUME 74.8 FL (83-96); MEAN CORPUSCULAR HEMOGLOBIN 24.2 PG (28-34); MEAN CORPUSCULAR HGB CONC 32.3 g/dL (30-36); MEAN PLATELET VOLUME 6.8 FL (6.5-11.5); RED BLOOD COUNT 4.41 X10e (3.90-5.30); RED CELL DISTRIBUTION WIDTH 16.4 % (11.0-15.5); WHITE BLOOD COUNT 6.6 X10e3 (4.0-10.5)
[2017-01-10 03:58] LABS: BUN/CREATININE RATIO 17.14; CALCIUM SERUM 8.9 mg/dL (8.4-10.2); CREATININE SERUM 0.7 mg/dL (0.6-1.4); GLOM FILT RATE Estimated 115.5 mL/min (>60); POTASSIUM 4.4 mmol/L (3.5-5.1)
[2017-01-10 04:13] LABS: FOLATE (FOLIC ACID) 20.7 ng/mL (>5.8)
[2017-01-11 03:36] LABS: HEMATOCRIT 32.7 % (35.0-45.0); HEMOGLOBIN 10.1 gm/dL (12.0-16.0); MEAN CELL VOLUME 75.7 FL (83-96); MEAN CORPUSCULAR HEMOGLOBIN 23.5 PG (28-34); MEAN PLATELET VOLUME 6.9 FL (6.5-11.5); RED BLOOD COUNT 4.32 X10e (3.90-5.30); RED CELL DISTRIBUTION WIDTH 16.6 % (11.0-15.5)
[2017-01-11 04:12] LABS: BUN/CREATININE RATIO 18.88; CALCIUM SERUM 9.1 mg/dL (8.4-10.2); CREATININE SERUM 0.9 mg/dL (0.6-1.4); GLOM FILT RATE Estimated 85.3 mL/min (>60); MAGNESIUM 2.1 mg/dL (1.6-3.0); POTASSIUM 3.8 mmol/L (3.5-5.1)
[2017-01-12 04:15] LABS: HEMATOCRIT 29.5 % (35.0-45.0); HEMOGLOBIN 9.4 gm/dL (12.0-16.0); MEAN CELL VOLUME 75.6 FL (83-96); MEAN CORPUSCULAR HEMOGLOBIN 24.1 PG (28-34); MEAN CORPUSCULAR HGB CONC 31.8 g/dL (30-36); MEAN PLATELET VOLUME 6.7 FL (6.5-11.5); RED BLOOD COUNT 3.9 X10e (3.90-5.30); RED CELL DISTRIBUTION WIDTH 16.7 % (11.0-15.5)
[2017-01-12 04:41] LABS: BUN/CREATININE RATIO 23.33; CALCIUM SERUM 8.8 mg/dL (8.4-10.2); CREATININE SERUM 0.9 mg/dL (0.6-1.4); GLOM FILT RATE Estimated 85.3 mL/min (>60); MAGNESIUM 1.9 mg/dL (1.6-3.0)
[2017-01-12] MEDS ORDERED: DEMEROL PO (13:34)
[2017-01-12] MEDS ORDERED: CYANOCOBAL1000 MCG/M INJ (13:35)
[2017-01-12] MEDS ORDERED: DDAVP0.1 MG PO ×2 (14:32→14:37)
[2017-01-12] MEDS ORDERED: B-121000 MC1 PO (14:50)
== END 2017-01-12 15:44 | disposition home or self-care (01) | DRG 660 ==
LOC: CSUR 06:26 → CPACUOF 09:18 → C4C 11:50 → C4B 13:28 → CPACUOF 13:28 → C4C 01-07 17:22 → C4B 01-07 17:22 → C4C 01-12 15:44
PROVIDERS: Family Medicine; Internal Medicine; Internal Medicine Endocrinology, Diabetes & Metabolism; Nurse Practitioner; Urology
PROC: 0DNW0ZZ Release Peritoneum, Open Approach (ICD-10-PCS; 2017-01-06)
PROC: 0TT10ZZ Resection of Left Kidney, Open Approach (ICD-10-PCS; principal; 2017-01-06 07:30)
PROC: 02HV33Z Insertion of Infusion Device into Superior Vena Cava, Percutaneous Approach (ICD-10-PCS; 2017-01-07)
PROC: 4A02X4A Measurement of Cardiac Electrical Activity, Guidance, External Approach (ICD-10-PCS; 2017-01-07)
PROC: B548ZZA Ultrasonography of Superior Vena Cava, Guidance (ICD-10-PCS; 2017-01-07)
DX: N26.1 Atrophy of kidney (terminal) (principal); J95.89 Other postprocedural complications and disorders of respiratory system, not elsewhere classified; E23.2 Diabetes insipidus; E11.8 Type 2 diabetes mellitus with unspecified complications; D51.9 Vitamin B12 deficiency anemia, unspecified; J84.10 Pulmonary fibrosis, unspecified; E66.9 Obesity, unspecified; J98.11 Atelectasis; N20.0 Calculus of kidney; R00.0 Tachycardia, unspecified; Y83.9 Surgical procedure, unspecified as the cause of abnormal reaction of the patient, or of later complication, without mention of misadventure at the time of the procedure; E03.9 Hypothyroidism, unspecified; Z91.040 Latex allergy status; G47.33 Obstructive sleep apnea (adult) (pediatric); Z83.3 Family history of diabetes mellitus; E78.01 Familial hypercholesterolemia; Z79.4 Long term (current) use of insulin; D50.9 Iron deficiency anemia, unspecified; K66.0 Peritoneal adhesions (postprocedural) (postinfection)
CPT/HCPCS: 71020; 78582; 80048; 81003; 82607; 82728; 82746; 82947; 83036; 83540; 83550; 83735; 83880; 83935; 84439; 84443; 84703; 85025; 85027; 85379; 86140; 87040; 87070; 87205; 88307; 93005; 93306; 93970; 94760; 97116; 97162; 97167; 97530; A9540; A9567; G8978-GP; G8979-GP; G8987-GO; G8988-GO; J0131; J0696; J1170; J1650; J1815; J2250; J2270; J2405; J2710; J3010; J3420

== ENCOUNTER 2017-01-14 10:06 | Observation (INO) | payer OTHER ==
[~2017-01-14] VITALS: Ht 139.7 cm; Wt 70.3 kg
--- NOTE | ~2017-01-14 | CO ---
Unit #: [id number] #: [id number] Patient: BREANNE OLIVARES [id number] [address] [address] [id number] I MR#: [id number] NAME: BREANNE OLIVARES ROOM: 559 Age: 32 Sex: F Admission Date: 01/14/2017 : 1985 Attending Physician: Diana Alfaro M.D. Primary Care Physician: Mana Flores M.D. Consultation Date: 01/15/2017 CONSULTATION REPORT REASON FOR CONSULTATION Deep vein thrombosis, recent renal surgery. HISTORY OF PRESENT ILLNESS Ms. Olivares is a 31-year-old female with a history of nonfunctioning left kidney, recurrent urinary tract infections, and large left renal stone, who recently underwent simple left nephrectomy by Dr. J Luis Del Rio on 01/06/2017. She tolerated the procedure well and had no complications postoperatively. However, over the past few days, she has noticed worsening pain in her right upper extremity as well as right upper extremity swelling. When the pain became severe, she presented to the ER. ER Doppler ultrasound demonstrated a right subclavian DVT. The recommendation was to start Lovenox. Urology consultation was requested, and I recommended that she be admitted for close observation when anticoagulation was initiated. She reports no left-sided flank pain overnight and no gross hematuria at this time. PAST MEDICAL HISTORY 1. Recurrent urinary tract infections. 2. Chronic renal insufficiency. 3. Nonfunctioning left kidney. 4. Urolithiasis. 5. DVT. 6. Diabetes mellitus. PAST SURGICAL HISTORY 1. History of chest tube. 2. History of tonsillectomy. 3. History of previous left kidney surgery. SOCIAL HISTORY Never smoker. Never alcohol. Denies recreational drugs. FAMILY HISTORY Father, hyperlipidemia. Mother, ovarian cancer. MEDICATIONS Desmopressin, fenofibrate, Humalog, Kombiglyze, Lantus. Levothyroxine, sulfamethoxazole. REVIEW OF SYSTEMS Denies blurry vision, epistaxis, chest pain, difficulty breathing, abdominal pain, numbness or tingling, difficulty with ambulation, fevers or chills. Unit #: [id number] #: [id number] Patient: OLIVARES,JÚNIOR PHYSICAL EXAMINATION VITAL SIGNS: Temperature 99.4, pulse 91, BP 80/55, O2 saturation 98%. HEENT: Pupils are equal, round, and reactive to light. No nasal discharge. Normal hearing. NECK: Supple. No lymphadenopathy. LUNGS: Normal respiratory effort. ABDOMEN: Soft, nondistended. Mild tenderness around the left flank incision. Incision is clean, dry, intact. Arturo in place. EXTREMITIES: Right upper extremity edema and tenderness. Otherwise, no cyanosis or edema. PSYCHIATRIC: Normal affect and mood. SKIN: Warm and dry. DIAGNOSTIC STUDIES LABORATORY RESULTS: Hemoglobin 9.7, white blood cell count 11.4, platelets 321. INR 1.1. PTT 21.0. Creatinine 1.0. ASSESSMENT AND PLAN This is a 31-year-old female with history of recent simple nephrectomy, recently diagnosed with subclavian DVT and started on anticoagulation. She remained stable at this time. 1. Continue to monitor CBC and repeat clinical exams. 2. We will continue to follow. Dictated by... James Go M.D. SOLEDAD/sarah TD: 01/16/2017 05:15 JOB #: [id number] CONSULTATION REPORT Page 1 of 1 X X CONSULTATION REPORT
--- NOTE | ~2017-01-14 | HP ---
Unit #: [id number] #: [id number] Patient: BREANNE TAPIA [id number] [address] [address] [id number] MR#: [id number] NAME: BREANNE TAPIA ROOM: 559 Age: 31 Sex: F Admission Date: 01/14/2017 : 1985 Attending Physician: Jazmyne Alfaro M.D. Primary Care Physician: Mana Flores M.D. HISTORY AND PHYSICAL CHIEF COMPLAINT Right arm swelling. HISTORY OF PRESENT ILLNESS The patient is a 31-year-old female with a past medical history of infected renal stone, hyperlipidemia, hypothyroidism, diabetes, pulmonary fibrosis, obstructive sleep apnea, ganglionic neuroma and immunodeficiency, was discharged home last status post reop open nephrectomy on January 06. The patient stated the patient went home. The patient had a PICC line during the hospitalization and the PICC line was removed prior to discharge. The patient had the lower extremity Dopplers and V/Q scan, both were negative prior to discharge. The patient went home and the patient started complaining of the right upper extremity pain. The patient had a venous Doppler of the upper extremity that showed the obstructive stenosis of the right axillary and subclavian DVT. The patient is being admitted. The patient denies any fever, chills, nausea, vomiting and denies any cough or shortness of breath. PAST MEDICAL HISTORY History of hyperlipidemia, hypothyroidism, diabetes insipidus, pulmonary fibrosis, obstructive sleep apnea, history of ganglionic neuroma, encephalitis, pituitary gland tumor, history of immunodeficiency and leg wounds. PAST SURGICAL HISTORY History of nephrectomy, EGD and abdominal surgery for ganglionic neuroma. SOCIAL HISTORY The patient lives with her parents. There is no tobacco or alcohol use. She typically walks without assistance. FAMILY HISTORY Notable for diabetes. ALLERGIES Sodium phosphate dibasic, desmopressin, citric acid and latex. HOME MEDICATIONS The patient is on: 1. Triamcinolone. 2. Meperidine. 3. Mupirocin. 4. Depo-Provera. 5. Metformin. Unit #: [id number] #: [id number] Patient: BREANNE TAPIA 6. Fenofibrate. 7. Insulin. 8. Humalog FlexTouch. 9. Desmopressin. 10. Zinc. 11. Bactrim. 12. Levothyroxine. 13. Vitamin D3. 14. B12. REVIEW OF SYMPTOMS Positive for right upper extremity swelling and tenderness and denies any shortness of breath and denies any chest pain. All other systems have been reviewed and all other systems are negative. PHYSICAL EXAMINATION GENERAL APPEARANCE: Patient is sitting on a chair eating the lunch. VITAL SIGNS: Temperature 98.7. Pulse 160. Respiratory 16. Blood pressure 110/69, sating 99% room air. HEENT: Head: Atraumatic, normocephalic. ENT: Pupils equal, round, reacting to light and accommodation. Extraocular movements intact. NECK: Supple. ABDOMEN: The patient had marylin from the surgery. UPPER EXTREMITY: Patient status post PICC line removal and patient has tenderness and denies any erythema. NEUROLOGIC: Alert, awake, oriented. No gross focal motor deficit. DIAGNOSTIC STUDIES LABORATORY: Glucose is 202, sodium 147, potassium 5, chloride 115, bicarb 23, glucose 198, BUN 19, creatinine one, AST 13, ALT 15, alkaline phosphatase 55, total protein 5.2, albumin 2.8. INR is one. WBC 8.9, hemoglobin 11, hematocrit 35.9, platelets 347. IMAGING: Venous Doppler shows the DVT of the axillary and subclavian vein. PLAN To admit the patient to the inpatient. Continue with the anticoagulation with Lovenox and Accu-Cheks a.c. and h.s. and low dose sliding scale and follow with INR in the morning and transition to oral anticoagulant for three months and further recommendations will follow. Dictated by Gay Abraham TD: 01/14/2017 18:32 JOB #: [id number] Unit #: [id number] #: [id number] Patient: BREANNE TAPIA HISTORY AND PHYSICAL Page 1 of 1 X JAZMYNE ALFARO MD X HISTORY AND PHYSICAL
--- NOTE | ~2017-01-14 | US140 ---
[facility] A Service of [facility] RADIOLOGY TEXT RESULTS PATIENT: BREANNE TAPIA LOCATION: [facility] 559-01 : [birth year] UNIT #: [id number] AGE: [address]: JAZMYNE ALFARO MD SEX: F ORDER DR: [id number] [facility] [address] [place], [place] [address] [id number] I MR#: [id number] Acc #: [id number] NAME: BREANNE TAPIA : 1985 SEX: F STUDY DATE/TIME: 01/14/2017 10:52 UNIT: [facility] ROOM: [facility] STUDY DESCRIPTION: US UE Veins Unilat or Ltd Stdy Attending Physician: Jazmyne Alfaro M.D. Ordering Physician: Kian Lopez D.O. Primary Care Physician: Mana Flores M.D. MEDICAL IMAGING REPORT This report is preliminary unless electronic signature is present EXAM Upper extremity veins ultrasound, unilateral or limited HISTORY Recent right upper extremity PICC placement with swelling for 5 days. COMMENT Real-time ultrasonography of the right upper extremity venous system performed with 2D grayscale compression imaging, color flow Doppler imaging, and waveform analysis. There is occlusive thrombus seen in the right subclavian and axillary veins consistent with acute-appearing deep venous thrombosis. Normal flow and compressibility is seen in the downstream internal jugular vein, deep and superficial brachial veins, proximal and distal cephalic veins, and proximal and distal basilic veins. IMPRESSION 1. The study is positive for occlusive deep venous thrombosis involving the right subclavian and axillary veins. Findings called to the emergency room by myself at the end of this dictation. ADDENDUM I spoke to Dr. Lopez. Dictated by... Gris West M.D. THIS IS AN ELECTRONICALLY VERIFIED REPORT Gris West M.D. at 01/15/2017 3:53 PM SAC/rbian TD: 01/15/2017 15:12 [facility] A Service of [facility] RADIOLOGY TEXT RESULTS PATIENT: BREANNE TAPIA LOCATION: [facility] 559-01 : [birth year] UNIT #: [id number] AGE: [address]: JAZMYNE ALFARO MD SEX: F ORDER DR: JOB #: [id number] MEDICAL IMAGING REPORT Page 1 of 1 COPY
--- NOTE | ~2017-01-14 | DS ---
Unit #: [id number] #: [id number] Patient: BREANNE OLIVARES [id number] [address] [address] [id number] I MR#: [id number] NAME: BREANNE OLIVARES ROOM: 559 Age: 32 Sex: F Admission Date: 01/14/2017 : 1985 Discharge Date: 01/15/2017 Attending Physician: Diana Alfaro M.D. Primary Care Physician: Mana Flores M.D. DISCHARGE SUMMARY PRINCIPAL DIAGNOSES 1. Right upper extremity deep vein thrombosis, peripherally inserted central catheter induced. 2. Recent left nephrectomy secondary to chronic pyelonephritis. 3. Diabetes insipidus. 4. Probable underlying obstructive sleep apnea. 5. Hyperlipidemia. 6. Hypothyroidism. 7. Diabetes mellitus type 2, insulin requiring. 8. History of ganglionic neuroma. 9. History of encephalitis. 10. Obesity. 11. Moderate protein malnutrition. 12. Normocytic anemia. CONSULTANTS Dr. Blake, pulmonology. DIAGNOSTIC STUDIES IMAGING: Right upper extremity venous Dopplers, which revealed occlusive thrombus in subclavian and axillary veins. CLINICAL HISTORY AND HOSPITAL COURSE Ms. Olivares is a nice 32-year-old female who was just discharged from this facility on January 12, 2017 following a left nephrectomy. The patient had PICC line during the hospitalization, and it was removed prior to discharge. The patient returned home and began developing right upper extremity swelling and increasing pain. She denies any palpitations. She denies any shortness of breath. She denies any chest pain. She returned to the emergency department, at which point a right upper extremity venous Doppler was done revealing an occlusive DVT, and the patient was placed in observation for evaluation. This morning the patient is clinically stable. She has had no chest pain, no tachycardia, no shortness of breath, nor has she had any hypoxia. I suspect her right upper extremity DVT is secondary to her underlying PICC. She was started on therapeutic Lovenox during hospitalization, and we will transition her to Xarelto, which I have discussed with her and her mother. I have discussed risks of bleeding, as well. The patient can be discharged home today. DISCHARGE CONDITION Stable. Unit #: [id number] #: [id number] Patient: BREANNE OLIVARES DISCHARGE STATUS Discharge to home. DISCHARGE MEDICATIONS 1. Xarelto starter pack for one month; i.e., 15 mg p.o. b.i.d. for 21 days, then 20 mg p.o. daily thereafter. A total of 2 months of medicine was written. 2. Triamcinolone cream 0.1% applied each evening. 3. Mupirocin ointment topically at bedtime. 4. Depo-Medrol injection q.3 months. 5. Kombiglyze XR 2.5/1,000 mg 1 b.i.d. 6. Fenofibrate 160 mg daily. 7. Tresiba FlexTouch 30 units at bedtime. 8. Humalog sliding scale with meals. 9. Orazinc 220 mg daily. 10. DDAVP 0.2 mg b.i.d. 11. Bactrim DS 1 tablet at bedtime. 12. Levothyroxine 50 mcg p.o. daily. 13. Vitamin D3 - 2,000 units each morning. 14. Vitamin B12 - 1,000 mcg p.o. daily. DISCHARGE INSTRUCTIONS Patient was instructed to follow a heart healthy, constant carb diet. She will continue Accu-Cheks as she was doing at home previously. She can increase her activity as tolerated. FOLLOW-UP 1. Patient will follow up with Dr. Del Rio as previously instructed. 2. She will require a total of 3 months of anticoagulation in regard to her DVT. 3. I recommend a followup a CBC when seen by Dr. Del Rio. 4. Patient should follow up with her primary care provider, Dr. Flores, in 2 weeks, as well. Dictated by... Adalgisa Hernandez M.D. LINDA/jewel TD: 01/16/2017 10:30 JOB #: [id number] DISCHARGE SUMMARY Page 1 of 1 X Adalgisa Hernandez MD X DISCHARGE SUMMARY
--- NOTE | ~2017-01-14 | CO ---
Unit #: [id number] #: [id number] Patient: BREANNE OLIVARES [id number] [address] [place], [place] [address] [id number] I MR#: [id number] NAME: BREANNE OLIVARES ROOM: 559 Age: 32 Sex: F Admission Date: 01/14/2017 : 1985 Attending Physician: Diana Alfaro M.D. Primary Care Physician: Mana Flores M.D. Consultation Date: 01/15/2017 CONSULTATION REPORT INDICATION FOR CONSULT DVT. HISTORY OF PRESENT ILLNESS Ms. Olivares is a 31-year-old female, who was just seen by us during her recent hospitalization and status post nephrectomy. She had previously been seen by Dr. Haynes in the past chest x-ray that was done during the hospitalization as well as consideration for repeat sleep apnea testing as an outpatient. During that hospitalization, she had a right upper extremity PICC and per charting has been refusing pharmacologic DVT prophylaxis. After going home, she developed some right arm pain and right upper extremity ultrasound demonstrated DVT. Because of the recent surgery and concern for postoperative bleeding with therapeutic anticoagulation she was admitted for observation while we started. She denies any cough, shortness of breath, chest pain, or any other complaints other than the right arm that had prompted her admission. PAST MEDICAL HISTORY Positive for sleep apnea intolerant to CPAP, diabetes insipidus, diabetes mellitus, dyslipidemia, hypothyroidism, history of pituitary tumor. SOCIAL HISTORY Negative for tobacco. FAMILY HISTORY Positive for diabetes. MEDICATIONS Home medications include levothyroxine, Bactrim, fenofibrate, triamcinolone, Humalog, vitamin D3, zinc, Depo-Provera, Demerol, DDAVP, and vitamin B12. PHYSICAL EXAMINATION VITAL SIGNS: Temperature 99, pulse 52, respirations 17, saturating 92% on room air, blood pressure 111/71. GENERAL: The patient is awake and alert, in no acute distress. HEENT: Pupils equal and reactive to light stimulus. Conjunctiva normal. Oral mucosa, pink and moist without lesions. NECK: Trachea midline. No thyromegaly. No cervical or supraclavicular adenopathy. LUNGS: Clear to auscultation bilaterally without wheezes, rhonchi, or rales. CARDIAC: Regular rate and rhythm. S1 and S2 auscultated without murmur. ABDOMEN: Soft, nontender, nondistended. Unit #: [id number] #: [id number] Patient: BREANNE OLIVARES EXTREMITIES: She moves all 4 extremities. No cyanosis, clubbing, or edema. SKIN: Cool and dry. DIAGNOSTIC STUDIES LABORATORY RESULTS: INR 1.1. BMP within normal limits. White count 11, hematocrit 31, and platelets 321. IMPRESSION 1. Right upper extremity deep vein thrombosis, PIC related. 2. Postop nephrectomy. PLAN I agreed with plan to transition oral anticoagulation for 3 months as this was a provoked DVT related to surgery and PICC line likely increase due to the patient's noncompliance with recommended pharmacologic DVT prophylaxis during her hospitalization. Plan outpatient followup for further workup and testing of her chest x-ray as well as sleep issues. Thank you very much. Dictated by... Vikash Blake M.D. HELEN/sarah TD: 01/16/2017 02:43 JOB #: [id number] CONSULTATION REPORT Page 1 of 1 X Vikash Blake MD X CONSULTATION REPORT
[~2017-01-14 10:06] MED LIST changes: +B-121000 MC1 PO; +CYANOCOBAL1000 MCG/M INJ; +DEMEROL PO
[2017-01-14 12:03] LABS: BASOPHIL# 0.1 X10e3 (0-0.3); EOSINOPHIL# 0.5 X10e3 (0-0.7); EOSINOPHIL% 5.2 % (0.0-7.0); HEMATOCRIT 35.9 % (35.0-45.0); LYMPHOCYTE# 2.3 X10e3 (1.0-3.5); LYMPHOCYTE% 25.4 % (17.0-45.0); MEAN CELL VOLUME 78.7 FL (83-96); MEAN CORPUSCULAR HEMOGLOBIN 24.1 PG (28-34); MEAN CORPUSCULAR HGB CONC 30.6 g/dL (30-36); MEAN PLATELET VOLUME 6.8 FL (6.5-11.5); MONOCYTE# 0.5 X10e3 (0-1.0); MONOCYTE% 5.7 % (3.0-12.0); NEUTROPHIL# 5.6 X10e3 (1.5-7.1); NEUTROPHIL% 62.7 % (40-75); PLATELET COUNT 347 X10e3 (140-420); RED BLOOD COUNT 4.56 X10e (3.90-5.30); RED CELL DISTRIBUTION WIDTH 17.3 % (11.0-15.5); WHITE BLOOD COUNT 8.9 X10e3 (4.0-10.5)
[2017-01-14 12:04] LABS: DIFF IND NO
[2017-01-14 12:11] LABS: PROTHROMBIN TIME (PATIENT) 10.6 SECONDS (10.0-11.7)
[2017-01-14 13:36] LABS: ALBUMIN SERUM 2.8 g/dL (3.5-5.0); BILIRUBIN,TOTAL 0.2 mg/dL (0.2-2.0); CALCIUM SERUM 8.8 mg/dL (8.4-10.2); PROTEIN TOTAL SERUM 5.2 g/dL (6.0-8.3)
[2017-01-15 05:22] LABS: HEMATOCRIT 31.3 % (35.0-45.0); HEMOGLOBIN 9.7 gm/dL (12.0-16.0); MEAN CORPUSCULAR HEMOGLOBIN 23.3 PG (28-34); MEAN PLATELET VOLUME 6.9 FL (6.5-11.5); RED BLOOD COUNT 4.17 X10e (3.90-5.30); RED CELL DISTRIBUTION WIDTH 16.6 % (11.0-15.5); WHITE BLOOD COUNT 11.4 X10e3 (4.0-10.5)
[2017-01-15 05:28] LABS: MEAN CELL VOLUME 75.2 FL (83-96)
[2017-01-15 05:32] LABS: INR 1.1; PROTHROMBIN TIME (PATIENT) 11.4 SECONDS (10.0-11.7)
[2017-01-15 05:53] LABS: CALCIUM SERUM 8.5 mg/dL (8.4-10.2); POTASSIUM 3.8 mmol/L (3.5-5.1)
[2017-01-15] MEDS ORDERED: XARELTO (10:07)
== END 2017-01-15 11:20 | disposition home or self-care (01) ==
LOC: CED 10:06 → CEDOF 13:13 → C5B 13:49 → CED 13:49 → CEDOF 13:49 → C5B 14:57 → CEDOF 14:57 → C5B 01-15 11:20
PROVIDERS: Emergency Medicine; Internal Medicine
DX: T82.868A Thrombosis due to vascular prosthetic devices, implants and grafts, initial encounter (principal); I82.621 Acute embolism and thrombosis of deep veins of right upper extremity; E23.2 Diabetes insipidus; Z90.5 Acquired absence of kidney; E78.5 Hyperlipidemia, unspecified; E11.9 Type 2 diabetes mellitus without complications; E66.9 Obesity, unspecified; E46 Unspecified protein-calorie malnutrition; D64.9 Anemia, unspecified; E03.9 Hypothyroidism, unspecified; Z86.61 Personal history of infections of the central nervous system; Z79.01 Long term (current) use of anticoagulants; Z79.4 Long term (current) use of insulin; Z79.899 Other long term (current) drug therapy; Z88.8 Allergy status to other drugs, medicaments and biological substances; Z91.040 Latex allergy status; Y83.1 Surgical operation with implant of artificial internal device as the cause of abnormal reaction of the patient, or of later complication, without mention of misadventure at the time of the procedure
CPT/HCPCS: 36415; 80048; 80053; 82947; 85025; 85027; 85610; 85730; 93971; 96372; 99285; G0378; J1650; J1815

== ENCOUNTER 2017-01-27 11:17 | Inpatient (IN) | payer OTHER ==
[~2017-01-27] VITALS: Ht 139.7 cm; Wt 73.2 kg
--- NOTE | ~2017-01-27 | CO ---
Unit #: [id number] #: [id number] Patient: BREANNE OLIVARES [id number] [address] [address] [id number] I MR#: [id number] NAME: BREANNE OLIVARES ROOM: 55 Age: 32 Sex: F Admission Date: 01/27/2017 : 1985 Attending Physician: Spring Lucas M.D. Primary Care Physician: Mana Flores M.D. Consultation Date: 01/27/2017 CONSULTATION REPORT CHIEF COMPLAINT Right flank pain. HISTORY OF PRESENT ILLNESS Ms. Olivares is a 32-year-old woman who underwent recent left nephrectomy with my partner, Dr. Del Rio, on 01/06/2017. The patient developed an upper extremity DVT. She was started on Xarelto. She came in today with back pain and flank pain. CT scan showed perinephric bleed on the right remaining kidney. We were consulted. PAST MEDICAL HISTORY 1. Left nephrectomy for chronic urinary tract infection. 2. Chronic stone. 3. Diabetes insipidus. 4. Pulmonary fibrosis. 5. Pituitary tumor. 6. Sleep apnea. 7. Hyperlipidemia. 8. Hypothyroidism. 9. EGD. SOCIAL HISTORY The patient denies smoking. ALLERGIES Desmopressin, citric acid, latex, sodium phosphate. CURRENT MEDICATIONS Check reconciliation sheet. PHYSICAL EXAMINATION VITALS: Afebrile. Vital signs stable. ABDOMEN: Soft. No rebound and no guarding. She has mild right CVA tenderness. DIAGNOSTIC STUDIES LABORATORY: Hemoglobin 9.2, creatinine 1.3. Urinalysis 3+ leukocytes, 1+ bacteria. Urine culture is pending. ASSESSMENT 1. Perinephric hematoma. 2. History of urinary tract infection. PLAN Unit #: [id number] #: [id number] Patient: BREANNE OLIVARES Observe for now. Xarelto has been held. Serial hemoglobin and hematocrit. Follow up on her urine culture. Thank you for the referral. Dictated by... Freddie Xiong M.D. Temo TD: 01/29/2017 10:29 JOB #: [id number] CONSULTATION REPORT Page 1 of 1 X Freddie Xiong MD CONSULTATION REPORT
--- NOTE | ~2017-01-27 | DS ---
Unit #: [id number] #: [id number] Patient: BREANNE OLIVARES [id number] [address] [address] [id number] I MR#: [id number] NAME: BREANNE OLIVARES ROOM: 55 Age: 32 Sex: F Admission Date: 01/27/2017 : 1985 Discharge Date: 01/31/2017 Attending Physician: Adalgisa Hernandez M.D. Primary Care Physician: Mana Flores M.D. DISCHARGE SUMMARY PRINCIPAL DIAGNOSES 1. Right subcapsular renal hemorrhage. 2. Acute blood loss anemia, status post transfusion of 2 units of packed red blood cells. 3. Right upper extremity deep venous thrombosis, peripherally inserted central catheter related, now off anticoagulation. 4. Iron-deficiency anemia. 5. Sinus tachycardia. 6. Systemic inflammatory response syndrome, secondary to #1. Infectious workup is negative. 7. Diabetes mellitus type 2, insulin requiring, uncontrolled. 8. Diabetes insipidus. 9. Pulmonary fibrosis. 10. Hypothyroidism. 11. Hyperlipidemia. 12. Obstructive sleep apnea. 13. Obesity. 14. Mild protein malnutrition. 15. History of encephalitis. 16. History of ganglionic neuroma. 17. Hyperkalemia. CONSULTANTS 1. Dr. Coombs, Cardiology. 2. Dr. Del Rio, Urology. 3. Dr. Phillips, Hematology. CLINICAL HISTORY AND HOSPITAL COURSE Ms. Olivares is a nice 32-year-old female discharged from this facility on January 15, 2017, after presenting with a right upper extremity DVT which was felt to be PICC related. Patient was discharged on Xarelto. She presents back to this emergency department with the abrupt onset of right flank pain. CT scan of the abdomen and pelvis revealed enlarged subcapsular hemorrhage compressing the renal parenchyma. Fortunately, renal function was normal. Hemoglobin upon presentation was found to be initially relatively normal at 9.2 and patient was admitted. Patient's Xarelto was discontinued and urology was consulted. Hemoglobin did trend down to as low as 7.2 and patient received 2 units of packed red blood cells. Repeat H and H is currently pending. Assuming hemoglobin is stable, plan is to just monitor hemoglobin on an outpatient basis. Patient has no further pain and no evidence at least clinically of bleeding. Dr. Coombs was consulted given patient has a history of persistent Unit #: [id number] #: [id number] Patient: BREANNE OLIVARES tachycardia and she did remain tachycardic during hospitalization; however, heart rate has been relatively stable now in the 110s and she can be followed up by Dr. Coombs on an outpatient basis. Dr. Phillips was consulted regarding his opinion regarding continued anticoagulation. At this point, her DVT is about two and a half to three weeks old and he feels it is safe to discontinue anticoagulation and monitor for signs or symptoms of PE. He will follow up the patient in the office. I will note he daya iron studies and she was found to be significantly iron deficient. She received a dose of Venofer during hospitalization here and I will discharge her home on iron supplements. DISCHARGE CONDITION Stable. DISCHARGE STATUS Discharge to home. DISCHARGE MEDICATIONS 1. Ferrous gluconate 324 mg b.i.d. 2. Triamcinolone 0.1% cream to legs at bedtime. 3. Mupirocin ointment topically at bedtime to legs. 4. Depo Provera subcutaneously every three months. 5. Kombiglyze XR 1000 mg one b.i.d. 6. Fenofibrate 160 mg each evening. 7. Tresiba FlexTouch U 100 at 30 units subcutaneously at bedtime. 8. Humalog sliding scale t.i.d. with meals. 9. Orazinc 220 mg daily. 10. DDAVP 0.2 mg b.i.d. 11. Levothyroxine 50 mcg p.o. daily. 12. Vitamin D3 at 2000 units p.o. daily. 13. Vitamin B12 at 1000 mcg p.o. daily. DISCHARGE INSTRUCTIONS 1. The patient was instructed to follow a heart healthy, low calorie, constant carb diet. 2. She will continue Accu-Cheks as she was doing at home previously. 3. She can increase her activity as tolerated. FOLLOWUP The patient will follow up with Dr. Del Rio as previously scheduled. He can further evaluate for resolution of her right subcapsular hemorrhage on an outpatient basis with CT. Patient can follow up with Dr. Phillips in approximately two weeks. Patient will keep followup appointment with Dr. Phillips as previously scheduled. Time spent on discharge today 33 minutes. Dictated by... Gay Desai/mikey TD: 02/01/2017 11:48 JOB #: [id number] Unit #: [id number] #: [id number] Patient: BREANNE OLIVARES DISCHARGE SUMMARY Page 1 of 1 X Adalgisa Hernandez MD X DISCHARGE SUMMARY
--- NOTE | ~2017-01-27 | CT4 ---
[facility] A Service of [facility] RADIOLOGY TEXT RESULTS PATIENT: BREANNE TAPIA LOCATION: [facility] 558-01 : 85 UNIT #: [id number] AGE: [address]: JAZMYNE ALFARO MD SEX: F ORDER DR: [id number] [facility] [address] [place], [place] [address] [id number] I MR#: [id number] Acc #: [id number] NAME: BREANNE TAPIA : 1985 SEX: F STUDY DATE/TIME: 01/27/2017 12:39 UNIT: [facility] ROOM: [facility] STUDY DESCRIPTION: CT Abd and Pelv Wo Cont Attending Physician: Jazmyne Alfaro M.D. Ordering Physician: Samuel Gaming M.D. Primary Care Physician: Mana Flores M.D. MEDICAL IMAGING REPORT This report is preliminary unless electronic signature is present EXAM CT abdomen and pelvis with contrast, 01/27/17 HISTORY Right flank pain for 2 days. COMPARISON STUDIES 11/30/16 TECHNIQUE Axial 3 mm images were obtained through the abdomen and pelvis without IV or oral contrast. Sagittal and coronal reconstructions were generated. This CT exam was performed with one or more of the following radiation dose reduction techniques: automatic exposure control, adjustment of mA and/or kV according to patient size, and iterative reconstruction. FINDINGS The is a healed fracture right lower rib, and there is some loculated calcified pleural reflection in the right base. The liver, gallbladder, spleen, pancreas and adrenal glands are normal. The right kidney is abnormal. There appears to be a large capsular hematoma measuring at least 2.8 cm in diameter which is compressing the normal parenchyma. This almost completely surrounds the kidney. The aorta is normal in size. There are postoperative changes in the left nephrectomy which has occurred since the 11/22/16 study. The bowel is normal. The bladder, uterus and adnexal regions are normal. The bones are otherwise unremarkable. IMPRESSION 1. Since the prior study of 11/30/16, the patient has undergone a left [facility] A Service of [facility] RADIOLOGY TEXT RESULTS PATIENT: BREANNE TAPIA LOCATION: [facility] 558-01 : [birth year] UNIT #: [id number] AGE: [address]: JAZMYNE ALFARO MD SEX: F ORDER DR: nephrectomy. 2. The right kidney has developed a large subcapsular recent hemorrhage which is compressing the renal parenchyma and could be causing hypertension and clinical correlation is recommended. 3. There is no extracapsular bleeding. 4. Evidence of old trauma in the right chest with a calcified loculated small right pleural fluid collection. Dictated by... Kalpesh Greene M.D. THIS IS AN ELECTRONICALLY VERIFIED REPORT Kalpesh Greene M.D. at 01/28/2017 6:24 AM Deidra TD: 01/28/2017 01:39 JOB #: [id number] MEDICAL IMAGING REPORT Page 1 of 1 COPY
--- NOTE | ~2017-01-27 | CO ---
Unit #: [id number] #: [id number] Patient: ANALIA OLIVARES [id number] [address] [place], [place] [address] [id number] I MR#: [id number] NAME: ANALIA OLIVARES ROOM: 55 Age: 32 Sex: F Admission Date: 01/27/2017 : 1985 Attending Physician: Adalgisa Hernandez M.D. Primary Care Physician: Mana Flores M.D. Consultation Date: 01/31/2017 CONSULTATION REPORT REASON FOR CONSULTATION Right upper extremity DVT, please evaluate. HISTORY OF PRESENT ILLNESS Analia Olivares is a 32-year-old with a history of diabetes insipidus, hyperlipidemia, hypothyroidism, type 2 diabetes mellitus, obstructive sleep apnea, who underwent nephrectomy for a nonfunctioning kidney. Postop course was complicated with a PICC line DVT of the right upper extremity and she was discharged home on Xarelto. She was recently admitted in the hospital on 01/27/2017 with fever and right upper quadrant abdominal pain and right flank pain. CT scan of the abdomen and pelvis revealed a right subcapsular hematoma, hemoglobin dropping from 9.7 at discharge on 01/15/2017 to 7.2 yesterday. Repeat Doppler studies of lower extremities show persistent thrombus in the right upper extremity. Ms. Olivares herself tells me that her right arm swelling, which was present in the middle of January at the time of her previous admission has now resolved, although she has some residual discomfort. No fever following admission, cough or shortness of breathing. She had a V/Q scan at the previous admission, which was negative. She has had a previous history of PICC line DVT related to ganglion excision; however, she has not had any lower extremity DVT. 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 Thereafter, she has developed some dyslexia, mental handicap, diabetes insipidus and subsequently type 2 diabetes mellitus, hypothyroidism, immunodeficiency, sleep apnea, pulmonary fibrosis. She also has stasis dermatitis of lower extremities related to Staph infection. PAST SURGICAL HISTORY Includes history of left nephrectomy, abdominal surgery for a paraganglioma. FAMILY HISTORY Negative for blood clots. SOCIAL HISTORY Lives with her parents, never a smoker. Does not drink any alcohol. REVIEW OF SYSTEMS Fourteen-point review of systems was taken. CONSTITUTIONAL: Fatigue and weakness. EYES: Negative. EARS, NOSE, MOUTH, AND THROAT: Negative. Unit #: [id number] #: [id number] Patient: ANALIA OLIVARES CARDIOVASCULAR: No chest pain or palpitations. RESPIRATORY: No cough or shortness of breathing. No hemoptysis. GASTROINTESTINAL: Negative. GENITOURINARY: Left nephrectomy. SKIN: Stasis dermatitis of lower extremities apparently with Staph superinfection. NEUROLOGIC: Negative. PSYCHIATRIC: Mental healthcare. ENDOCRINE: Diabetes insipidus and type 2 diabetes. ALLERGIES Listed sodium phosphate dibasic, intranasal desmopressin, citric acid and latex. HOME MEDICATIONS Lisinopril, zinc sulfate, Depo-Provera, desmopressin, B12, Xarelto prior to admission, the last dose taken on Monday night prior to admission, mupirocin, triamcinolone, Humalog, vitamin D3, levothyroxine, Bactrim, fenofibrate, insulin. PHYSICAL EXAMINATION GENERAL: She is a pleasant young woman, somewhat child like, awake, alert and oriented x3. VITAL SIGNS: Temperature is 98.4, pulse is 107, respirations 16, blood pressure 110/58, O2 sats 98% on room air. HEENT: Examination shows pupils are equal and reactive well to light. She is pale, but not icteric. Mucous membranes are moist. NECK: Without adenopathy, JVD, or thyromegaly. CARDIOVASCULAR: First and second heart sounds are heard and regular without murmurs, gallops, or rubs. LUNGS: Chest expansion is symmetric bilaterally with normal breath sounds. ABDOMEN: Soft and nontender. EXTREMITIES: Warm. She has good bandages over both shins related to her stasis dermatitis and superinfections. Pulses could not be felt because of bandages. Examination of the upper extremity shows right arm is slightly swollen compared to the left, but no significant erythema. Pulses are well felt. NEUROLOGIC: She is awake, alert, and oriented x3 without any focal findings. PSYCHIATRIC: Flat affect. DIAGNOSTIC STUDIES LABORATORY RESULTS: Basic metabolic panel shows a BUN of 23, creatinine is 0.8. Iron is less than 5, TIBC of 244, B12 of 366. Folic acid is 11.7. CBC on 01/30/2017 with a white count of 8.4, hemoglobin 7.2, MCV 73, platelet count 455,000. IMAGING STUDIES: Ultrasound of the upper extremities done on 01/28/2017 in comparison to 01/15/2017 study shows right subclavian axillary vein superficial venous thrombus occluding intraluminal debris and no flow. ASSESSMENT/PLAN Analia Olivares is a 32-year-old with a history of childhood encephalitis with complicated by diabetes insipidus, type 2 diabetes mellitus, mental handicap, hypothyroidism, hyperlipidemia, immunodeficiency, who is now admitted with right PICC line deep venous thrombosis along with right subcapsular hematoma with acute blood loss anemia secondary to Xarelto Unit #: [id number] #: [id number] Patient: ANALIA OLIVARES anticoagulation. Unfortunately, given the circumstances, she is not a candidate for anticoagulation and IVC filter is not feasible. Her arm is less symptomatic at this point. It is almost 3 weeks from the onset of PICC line-related deep venous thrombosis. She also has microcytic anemia with iron studies confirming iron deficiency. RECOMMENDATIONS 1. Observe with no anticoagulation. Plans were discussed in detail with Ms. Olivares as well as mother who is at bedside. 2. Ferrlecit 250 mg IV daily for 3 days. 3. Monitor CBC with transfusion support. Thank you for allowing me to participate in her care. Dictated by... Jaspal Phillips M.D. ARMANDO/sarah TD: 01/31/2017 23:30 JOB #: [id number] CONSULTATION REPORT Page 1 of 1 X Jaspal Phillips MD X CONSULTATION REPORT
--- NOTE | ~2017-01-27 | EKG ---
PATIENT: BREANNE TAPIA UNIT #: [id number] Ventricular Rate: 132 BPM Atrial Rate: 132 BPM P-R Interval: 122 ms QRS Duration: 78 ms Q-T Interval: 288 ms QTC Calculation(Bezet): 426 ms P [place]: 51 degrees Calculated R [place]: 38 degrees Calculated T [place]: 34 degrees Diagnosis Line: Sinus tachycardia Diagnosis Line: Otherwise normal ECG Diagnosis Line: When compared with ECG of 10-JAN-2017 10:37, Diagnosis Line: No significant change was found Diagnosis Line: Confirmed by MARTA FRANCO MD ([id number]) on Diagnosis Line: 01/30/2017 4:42:23 PM INTERPRETING MD: BRANDEE
--- NOTE | ~2017-01-27 | HP ---
Unit #: [id number] #: [id number] Patient: BREANNE TAPIA [id number] [address] [address] [id number] I MR#: [id number] NAME: BREANNE TAPIA ROOM: 55 Age: 32 Sex: F Admission Date: 01/27/2017 : 1985 Attending Physician: Jazmyne Alfaro M.D. Primary Care Physician: Mana Flores M.D. HISTORY AND PHYSICAL CHIEF COMPLAINT Right flank pain for two days. HISTORY OF PRESENT ILLNESS The patient is a 31-year-old female with a past medical history of an infected renal stone, hyperlipidemia, hypothyroidism, diabetes, pulmonary fibrosis, obstructive sleep apnea, and immunodeficiency. He had a right open nephrectomy on January 06 complicated with a DVT in the right upper extremity subclavian vein on anticoagulation with Xarelto. Presented to the emergency room complaining of the right flank pain. The patient stated the patient was seen by the record clerk salesperson and was started on new pills, but had fever a few days ago. The patient started complaining of the pain and eventually thought that the pain is from the medications. The pain continues to worsen and associated with fever of 101 earlier at home and that made her come to the emergency room. The patient had a workup with a CT of the abdomen and pelvis that showed right renal subcapsular hemorrhage. The patient is being admitted for the above reasons. The patient denies any chest pain or dizziness. Denies any bleeding in the urine and the stools. PAST MEDICAL HISTORY History of hyperlipidemia, hypothyroidism, diabetes insipidus, pulmonary fibrosis, obstructive sleep apnea, history of ganglionic neuroma, encephalitis, pituitary gland tumor, history of immunodeficiency, leg wounds and history of a subclavian DVT in the right upper extremity. PAST SURGICAL HISTORY History of nephrectomy, EGD and abdominal surgery for ganglionic neuroma. SOCIAL HISTORY The patient lives with her parents. There is no tobacco or alcohol use. She typically walks without assistance. FAMILY HISTORY Notable for diabetes. ALLERGIES Allergic to sodium phosphate dibasic, desmopressin, citric acid and latex. HOME MEDICATIONS Patient is on: 1. Lisinopril. 2. Zinc sulfate. 3. Depo-Provera. Unit #: [id number] #: [id number] Patient: BREANNE TAPIA 4. Desmopressin. 5. Vitamin B12. 6. Xarelto. 7. Mupirocin. 8. Triamcinolone. 9. Humalog. 10. Vitamin D3. 11. Levothyroxine. 12. Bactrim. 13. Fenofibrate. 14. Saxagliptin 15. Insulin degludec. REVIEW OF SYMPTOMS Positive for the abdominal pain. Positive for fevers and negative for chest pain. Negative for shortness of breath. Negative for bleeding per rectum or bleeding in the urine. All other systems have been reviewed and are negative. PHYSICAL EXAMINATION GENERAL APPEARANCE: The patient is lying on the bed not in acute distress. VITAL SIGNS: Temperature is 98.8 and T. max. is 103 and heart rate is 130, respiratory rate 18, blood pressure 125/55, and satting 97% at room air. HEENT: Head: Atraumatic, normocephalic. EENT: Pupils equal, round, and reactive to light and accommodation. Positive for dry mucous membranes. NECK: Supple. LUNGS: Decreased air entry at bases. HEART: Regular rate and rhythm. ABDOMEN: Soft, positive bowel sounds, and generalized discomfort in the right flank. UPPER EXTREMITIES: No cyanosis. No clubbing. NEURO: Alert, awake, and oriented. No gross focal motor deficit. DIAGNOSTIC STUDIES LABORATORY: WBC 13.2, hemoglobin 9.2, hematocrit 28.9, platelets 502. Sodium 141, potassium 4.5, chloride 111, bicarb 21, glucose 115, BUN 40, creatinine 1.3, calcium 9.1, albumin 3.3. Lipase 44. UA shows 3+ leukocytes esterase, 1+ protein, 100-200 urine WBCs, and 10-25 urine RBCs. IMAGING: CT of the abdomen and pelvis showed subcapsular hemorrhage compressing the renal parenchyma. ASSESSMENT AND PLAN 1. Sepsis. 2. Urinary tract infection. 3. Subcapsular hemorrhage. Plan to admit the patient to inpatient. Patient will be followed with the sepsis protocol. Patient's urologist has already been consulted from the ER, Dr. Xiong. Hold the Xarelto. Continue with the IV antibiotics with Rocephin 1 g daily. Further recommendations will follow as more levels are available. Dictated by Jazmyne Alfaro M.D. Unit #: [id number] #: [id number] Patient: BREANNE TAPIA Zandra TD: 01/28/2017 06:33 JOB #: [id number] HISTORY AND PHYSICAL Page 1 of 1 X JAZMYNE ALFARO MD HISTORY AND PHYSICAL
--- NOTE | ~2017-01-27 | US140 ---
[facility] A Service of [facility] RADIOLOGY TEXT RESULTS PATIENT: BREANNE TAPIA LOCATION: [facility] [address] : [birth year] UNIT #: [id number] AGE: [address]: Spring Lucas MD SEX: F ORDER DR: [id number] [facility] [address] [facility] [place], [place] [address] [id number] I MR#: [id number] Acc #: [id number] NAME: BREANNE TAPIA : 1985 SEX: F STUDY DATE/TIME: 01/28/2017 20:21 UNIT: [facility] ROOM: [facility] STUDY DESCRIPTION: UE Veins Unilat or Ltd Stdy Attending Physician: Spring Lucas M.D. Ordering Physician: Flako Stacy M.D. Primary Care Physician: Mana Flores M.D. MEDICAL IMAGING REPORT This report is preliminary unless electronic signature is present EXAM Right upper extremity venous Doppler REASON FOR EXAM History of right upper extremity DVT. FINDINGS The right internal jugular vein is widely patent and compression throughout. There is phasic flow with respiration and augmentation. The right subclavian vein, axillary vein and superficial brachial vein are occluded with intraluminal debris and no color flow. The deep brachial vein appears to be patent and compressible with phasic flow. The right cephalic and basilic veins are patent and compressible with no evidence of thrombosis. IMPRESSION Positive right upper extremity deep vein thrombosis of the subclavian vein, axillary vein, and superficial brachial vein. Dictated by... Dolores Arreola M.D. THIS IS AN ELECTRONICALLY VERIFIED REPORT Dolores Arreola M.D. at 01/30/2017 7:32 AM GITA/catie TD: 01/30/2017 05:02 JOB #: [id number] MEDICAL IMAGING REPORT [facility] A Service [facility] RADIOLOGY TEXT RESULTS PATIENT: BREANNE TAPIA LOCATION: [facility] 55 : [birth year] UNIT #: [id number] AGE: [address]: Spring Lucas MD SEX: F ORDER DR: Page 1 of 1 COPY
[~2017-01-27 11:17] MED LIST changes: +XARELTO
[2017-01-27 12:26] LABS: BASOPHIL# 0.1 X10e3 (0-0.3); BASOPHIL% 0.5 % (0-2.5); EOSINOPHIL% 0.3 % (0.0-7.0); HEMATOCRIT 28.9 % (35.0-45.0); HEMOGLOBIN 9.2 gm/dL (12.0-16.0); LYMPHOCYTE# 1.5 X10e3 (1.0-3.5); LYMPHOCYTE% 11.7 % (17.0-45.0); MEAN CELL VOLUME 73.2 FL (83-96); MEAN CORPUSCULAR HEMOGLOBIN 23.2 PG (28-34); MEAN CORPUSCULAR HGB CONC 31.7 g/dL (30-36); MEAN PLATELET VOLUME 6.6 FL (6.5-11.5); MONOCYTE% 7.8 % (3.0-12.0); NEUTROPHIL# 10.5 X10e3 (1.5-7.1); NEUTROPHIL% 79.7 % (40-75); PLATELET COUNT 502 X10e3 (140-420); RED BLOOD COUNT 3.96 X10e (3.90-5.30); RED CELL DISTRIBUTION WIDTH 16.4 % (11.0-15.5); WHITE BLOOD COUNT 13.2 X10e3 (4.0-10.5)
[2017-01-27 12:29] LABS: DIFF IND NO
[2017-01-27 12:52] LABS: ALBUMIN SERUM 3.3 g/dL (3.5-5.0); BILIRUBIN, DIRECT 0.1 mg/dL (0.0-0.2); BILIRUBIN,INDIRECT 0.3 mg/dL (0.0-0.9); BILIRUBIN,TOTAL 0.4 mg/dL (0.2-2.0); BUN/CREATININE RATIO 30.76; CALCIUM SERUM 9.1 mg/dL (8.4-10.2); CREATININE SERUM 1.3 mg/dL (0.6-1.4); GLOM FILT RATE Estimated 54.2 mL/min (>60); POTASSIUM 4.5 mmol/L (3.5-5.1); PROTEIN TOTAL SERUM 5.8 g/dL (6.0-8.3)
[2017-01-27 13:21] LABS: URINE SOURCE CLEAN CATCH
[2017-01-27 13:24] LABS: URINE APPEARANCE CLOUDY; URINE BILIRUBIN NEG (NEG); URINE BLOOD 3+ (NEG); URINE COLOR YELLOW; URINE GLUCOSE NEG (NEG); URINE KETONE NEG (NEG); URINE LEUKOCYTE ESTERASE 3+ (NEG); URINE NITRATE NEG (NEG); URINE PROTEIN 1+ (NEG); URINE SPECIFIC GRAVITY 1.023 (1.003-1.035); URINE UROBILINOGEN 0.2 MG/DL (NEG)
[2017-01-27 13:26] LABS: CULTURE INDICATED? YES; URINE BACTERIA AUWI 1+ (NEGATIVE); URINE SQUAMOUS EPITHELIAL CELL OCC /[HPF]; UWBCS1 AUWI 100-200 (0-5)
[2017-01-27] MEDS ORDERED: LISINOPRIL5 MG PO (14:05)
[2017-01-28 07:28] LABS: BUN/CREATININE RATIO 25.83; CALCIUM SERUM 8.9 mg/dL (8.4-10.2); CREATININE SERUM 1.2 mg/dL (0.6-1.4); GLOM FILT RATE Estimated 59.8 mL/min (>60); POTASSIUM 4.3 mmol/L (3.5-5.1)
[2017-01-28 08:27] LABS: HEMATOCRIT 27.4 % (35.0-45.0); HEMOGLOBIN 8.5 gm/dL (12.0-16.0); MEAN CELL VOLUME 74.4 FL (83-96); MEAN CORPUSCULAR HEMOGLOBIN 23.1 PG (28-34); MEAN PLATELET VOLUME 7.1 FL (6.5-11.5); RED BLOOD COUNT 3.69 X10e (3.90-5.30); RED CELL DISTRIBUTION WIDTH 16.7 % (11.0-15.5)
[2017-01-29 07:17] LABS: HEMATOCRIT 26.1 % (35.0-45.0); HEMOGLOBIN 8.2 gm/dL (12.0-16.0); MEAN CELL VOLUME 73.6 FL (83-96); MEAN CORPUSCULAR HGB CONC 31.3 g/dL (30-36); MEAN PLATELET VOLUME 7.5 FL (6.5-11.5); RED BLOOD COUNT 3.55 X10e (3.90-5.30); RED CELL DISTRIBUTION WIDTH 16.2 % (11.0-15.5); WHITE BLOOD COUNT 10.4 X10e3 (4.0-10.5)
[2017-01-29 07:46] LABS: CALCIUM SERUM 8.8 mg/dL (8.4-10.2); GLOM FILT RATE Estimated 74.5 mL/min (>60); MAGNESIUM 1.7 mg/dL (1.6-3.0); POTASSIUM 4.4 mmol/L (3.5-5.1)
[2017-01-30 07:23] LABS: HEMATOCRIT 22.8 % (35.0-45.0); HEMOGLOBIN 7.2 gm/dL (12.0-16.0); MEAN CORPUSCULAR HEMOGLOBIN 23.1 PG (28-34); MEAN CORPUSCULAR HGB CONC 31.7 g/dL (30-36); MEAN PLATELET VOLUME 7.4 FL (6.5-11.5); RED BLOOD COUNT 3.12 X10e (3.90-5.30); RED CELL DISTRIBUTION WIDTH 16.7 % (11.0-15.5); WHITE BLOOD COUNT 8.4 X10e3 (4.0-10.5)
[2017-01-30 07:53] LABS: BUN/CREATININE RATIO 27.77; CALCIUM SERUM 8.7 mg/dL (8.4-10.2); CREATININE SERUM 0.9 mg/dL (0.6-1.4); GLOM FILT RATE Estimated 84.7 mL/min (>60); POTASSIUM 4.3 mmol/L (3.5-5.1)
[2017-01-30 15:30] LABS: TOTAL IRON BINDING CAPACITY 244 ug/dL (269-535); TRANSFERRIN 174 mg/dL (192-382)
[2017-01-30 15:31] LABS: IRON SERUM <5 ug/dL (28-170); TRANSFERRIN SATURATION 2 % (20-50)
[2017-01-30 15:49] LABS: FOLATE (FOLIC ACID) 11.7 ng/mL (>5.8)
[2017-01-31 07:22] LABS: BUN/CREATININE RATIO 28.75; CALCIUM SERUM 9.1 mg/dL (8.4-10.2); CREATININE SERUM 0.8 mg/dL (0.6-1.4); GLOM FILT RATE Estimated 97.6 mL/min (>60); MAGNESIUM 1.7 mg/dL (1.6-3.0); POTASSIUM 5.4 mmol/L (3.5-5.1)
[2017-01-31 16:27] LABS: HEMATOCRIT 28.7 % (35.0-45.0)
[2017-01-31 16:28] LABS: HEMOGLOBIN 9.4 gm/dL (12.0-16.0)
[2017-01-31] MEDS ORDERED: FERROUS GLUCON324 M1 PO (17:34)
== END 2017-01-31 18:56 | disposition home or self-care (01) | DRG 699 ==
LOC: CED 11:17 → CEDOF 13:45 → CED 14:15 → CEDOF 14:15 → CED 16:14 → C5B 16:14 → CEDOF 16:14 → C5B 16:14 → CEDOF 16:58 → C5B 16:58
PROVIDERS: Emergency Medicine; Internal Medicine; Internal Medicine Endocrinology, Diabetes & Metabolism; Nurse Practitioner Family
PROC: 30233N1 Transfusion of Nonautologous Red Blood Cells into Peripheral Vein, Percutaneous Approach (ICD-10-PCS; principal; 2017-01-30)
DX: N28.89 Other specified disorders of kidney and ureter (principal); D62 Acute posthemorrhagic anemia; E23.2 Diabetes insipidus; T82.868A Thrombosis due to vascular prosthetic devices, implants and grafts, initial encounter; R65.10 Systemic inflammatory response syndrome (SIRS) of non-infectious origin without acute organ dysfunction; J84.10 Pulmonary fibrosis, unspecified; E44.1 Mild protein-calorie malnutrition; R00.0 Tachycardia, unspecified; E11.9 Type 2 diabetes mellitus without complications; E03.9 Hypothyroidism, unspecified; E78.5 Hyperlipidemia, unspecified; G47.33 Obstructive sleep apnea (adult) (pediatric); E66.9 Obesity, unspecified; Z90.5 Acquired absence of kidney; Z83.3 Family history of diabetes mellitus; Z88.8 Allergy status to other drugs, medicaments and biological substances; Z91.040 Latex allergy status; Z79.01 Long term (current) use of anticoagulants; T45.515A Adverse effect of anticoagulants, initial encounter
CPT/HCPCS: 36415; 36430; 74176; 80048; 80076; 81003; 82607; 82746; 82947; 83540; 83550; 83605; 83690; 83735; 84132; 85014; 85018; 85025; 85027; 86850; 86900; 86901; 86923; 87040; 87086; 93005; 93971; 99291; J0696; J1815; J1940; J2270; J2916; J3475; P9016